=== PATIENT | female | born 1970 | race Caucasian/White ===

== ENCOUNTER 2025-01-03 21:32 | Observation (INO) ==
--- NOTE | 2025-01-03 22:12 | Emergency Department Note ---
History of Present Illness General Chief complaint: Cardiac Assessment Stated complaint: Chest Discomfort Time Seen by Provider: 01/03/25 21:59 History of Present Illness Maximum Pain Intensity: 5 This is a 54-year-old female presenting to the emergency department via EMS for evaluation of central chest pain. Patient's symptoms began around 6:30 PM, and she describes it as a squeezing sensation. Patient did receive aspirin and nitroglycerin for EMS, and nitroglycerin seem to help her pain. On arrival to the ER the discomfort is a 5/10. Patient does have a history of breast cancer in remission. No known history of diabetes. Patient does not have any recent travel history. Home Medications Medication Instructions Recorded Confirmed Type cholecalciferol (vitamin D3) 50 50 mcg PO DAILY 01/12/22 01/04/25 History mcg (2,000 unit) capsule rosuvastatin 10 mg tablet (Crestor) 10 mg PO .3 times/week 12/23/23 01/04/25 History tamoxifen 20 mg tablet 20 mg PO .3 times/week 12/23/23 01/04/25 History turmeric 400 mg capsule 400 mg PO DAILY 12/23/23 01/04/25 History mecobalamin (vitamin B12) 5,000 5,000 mcg PO DAILY 12/21/24 01/04/25 History mcg disintegrating tablet gabapentin 300 mg capsule 300 mg PO [id number] 01/04/25 01/04/25 History vitamin E 100 unit capsule 100 mg PO DAILY 01/04/25 01/04/25 History Allergies Allergy/AdvReac Type Severity Reaction Status Date / Time No Known Allergies Allergy Verified 01/04/25 02:34 Past Med/Surg History Problem List (Updated 01/04/25 @ 05:58 by Alfredo Rg PA-C) Pulmonary embolism (Acute) Malignant neoplasm of upper-inner quadrant of left breast in female, estrogen receptor positive (Chronic 07/31/21) Endometriosis (Chronic) Abdominal pain (Acute) Medical History Abnormal vaginal Pap smear Surgical History History of colonoscopy (03/24/20) History of colonoscopy (03/21/15) History of ultrasound guided needle biopsy (07/31/21) Left Breast History of partial mastectomy of left breast (08/25/21) Left Breast [employer] Localized Partial Masectomy with SNL Biopsy Dr. Johny Ríos at OR [facility] Family History Father No problems noted. Mother No problems noted. Brother No problems noted. Sister No problems noted. Daughter No problems noted. Social History Smoking Status: Current every day smoker Tobacco Type: Cigarettes packs per day: 1; Second Hand Exposure: No; Do You Dip or Chew Tobacco: No; Hx Alcohol Use: No Hx Substance Use: No Preferred Language: Palestinian Communication Ability: Effective Visual Impairment: Limited Hearing Ability: Normal Brushing Operator Required: No Beliefs That Will Affect Care: None marital status: Current Living Situation: Family current occupational status: unemployed How many Children do You have: 1 Feels Safe at Home: Yes Childhood Exposure to Second-Hand Smoke: No Diet Comment: low potassium during the past year weight has: remained stable Dental Care, Regularly: No Assistive Devices: Glasses Review of Systems A total of 10 systems reviewed and were otherwise negative Physical Exam Vital Signs Vital Signs - 24 hr 01/03/25 21:40 01/03/25 21:47 01/03/25 21:50 Temperature 36.8 C Temperature Source Oral Pulse Rate 102 H 109 H Pulse Rate [Apical] Pulse Rhythm [Apical] Pulse Strength [Apical] Respiratory Rate 18 Respiratory Effort / Characteristics Respiratory Depth Respiratory Pattern Blood Pressure 117/76 Blood Pressure [Right Arm] Blood Pressure Mean 89 Blood Pressure Mean [Right Arm] Blood Pressure Position [Right Arm] Pulse Oximetry 94 Oxygen Delivery Method Room Air Sepsis Recent Fever Within 48 Hours No Sepsis New/Unexplained Change in Mental Status N/A Sepsis Action Taken by Nursing No Action Required 01/04/25 00:00 01/04/25 01:05 01/04/25 01:49 Temperature Temperature Source Pulse Rate 86 Pulse Rate [Apical] 96 H 80 Pulse Rhythm [Apical] Regular Regular Pulse Strength [Apical] Normal Normal Respiratory Rate 17 17 Respiratory Effort / Characteristics Non-Labored Spontaneous Non-Labored Spontaneous Respiratory Depth Normal Normal Respiratory Pattern Regular Regular Blood Pressure Blood Pressure [Right Arm] 106/85 109/77 Blood Pressure Mean Blood Pressure Mean [Right Arm] 92 87 Blood Pressure Position [Right Arm] Lying Lying Pulse Oximetry 96 98 Oxygen Delivery Method Room Air Room Air Sepsis Recent Fever Within 48 Hours Sepsis New/Unexplained Change in Mental Status Sepsis Action Taken by Nursing 01/04/25 02:30 01/04/25 05:01 01/04/25 05:45 Temperature Temperature Source Pulse Rate 76 Pulse Rate [Apical] 87 79 Pulse Rhythm [Apical] Regular Regular Pulse Strength [Apical] Normal Normal Respiratory Rate 18 17 Respiratory Effort / Characteristics Non-Labored Spontaneous Non-Labored Spontaneous Respiratory Depth Normal Normal Respiratory Pattern Regular Regular Blood Pressure Blood Pressure [Right Arm] 105/75 107/70 Blood Pressure Mean Blood Pressure Mean [Right Arm] 85 82 Blood Pressure Position [Right Arm] Sitting Lying Pulse Oximetry 97 97 Oxygen Delivery Method Room Air Room Air Sepsis Recent Fever Within 48 Hours Sepsis New/Unexplained Change in Mental Status Sepsis Action Taken by Nursing VITALS: Vitals are noted on the nurse's note and reviewed by myself. Vital signs stable. GENERAL: Well-developed, well-nourished, white female, who is in no acute distress and resting comfortably. Patient is cooperative with the examination. HEAD: Normocephalic atraumatic. MOUTH: Mucous membranes moist. Tonsils are not enlarged. Pharynx without erythema, blood, or exudate. Uvula midline. Airway patent. NECK: Supple without nuchal rigidity. No lymphadenopathy. No thyromegaly. Cervical spine is nontender. HEART: Regular rate and rhythm without murmurs gallops or rubs. LUNGS: Clear to auscultation bilaterally without wheezes, rales or rhonchi. No retractions or accessory muscle use. ABDOMEN: Positive normal bowel sounds x 4. Soft, nontender, without masses or organomegaly. No guarding or rebound tenderness. MUSCULOSKELETAL: No muscle atrophy, erythema, or edema noted. Full range of motion in all extremities. Course Administered Medications Potassium Chloride/Sodium Chloride (Normal Saline W/20 Meq Kcl) 20 meq in 1,000 mls @ 75 mls/hr IV .[id number] STA Stop: 01/04/25 16:39 Last Admin: 01/04/25 04:52 Dose: 75 mls/hr Documented By: KAF Discontinued Medications Enoxaparin Sodium (Enoxaparin 80 Mg/0.8 Ml Syr) 70 mg 1 mg/kg (75 mg) SQ ONE STA Stop: 01/04/25 03:42 Last Admin: 01/04/25 04:11 Dose: 70 mg Documented By: ANA MARIA Sodium Chloride (Nss) 1,000 mls @ 999 mls/hr IV .[id number] ONE Stop: 01/03/25 23:08 Last Infusion: 01/04/25 01:15 Dose: Infused Documented By: Admin: 01/04/25 00:13 Dose: 999 mls/hr Documented By: AMADEO Calcium Gluconate () 1,000 mg in 60 mls @ 240 mls/hr IV NOW STA Stop: 01/04/25 03:11 Last Infusion: 01/04/25 04:16 Dose: Infused Documented By: ANA MARIA Admin: 01/04/25 03:53 Dose: 240 mls/hr Documented By: ANA MARIA Ioversol (Optiray 320 125ml) 115 ml IV ONCE ONE Stop: 01/03/25 23:20 Last Admin: 01/03/25 23:19 Dose: 115 ml Documented By: HUY Ketorolac Tromethamine (Ketorolac Tromethamine 15 Mg/Ml Vial) 10 mg IV NOW STA Stop: 01/04/25 03:42 Last Admin: 01/04/25 04:10 Dose: 10 mg Documented By: ANA MARIA Nitroglycerin (Nitroglycerin 2% Ointment 30gm Tube) 1 inch EXT NOW ONE Stop: 01/03/25 22:09 Last Admin: 01/03/25 22:47 Dose: Not Given Documented By: RAMIRO Medical Decision Making Differential Diagnosis Differential diagnosis includes, but is not limited to: Myocardial infarction, dysrhythmia, pericarditis, pneumothorax, aortic aneurysm/dissection, DVT/PE, anxiety, GERD, PUD, electrolyte imbalance, thyroid disorder, pneumonia, bronchitis, pancreatitis, and others Laboratory Data 01/04/25 04:45 01/04/25 04:45 Lab Results 01/03/25 01/04/25 Range/Units 21:58 04:45 WBC 17.72 H 10.52 (4.8-10.8) K/ul RBC 4.41 4.48 (4.20-5.40) M/uL Hgb 13.2 13.3 (12.0-16.0) g/dl Hct 38.3 39.3 (37.0-47.0) % MCV 86.8 87.7 (80.0-100.0) fL MCH 29.9 29.7 (25.0-34.0) pg MCHC 34.5 33.8 (32.0-36.0) g/dL RDW Std Deviation 40.1 40.2 (36.4-46.3) fL RDW Coeff of Dorita 12.5 12.5 (11.5-14.5) % Plt Count 277 247 (130-400) K/uL MPV 10.5 10.3 (9.4-12.4) fL Immature Gran % (Auto) 0.5 0.3 % Neut % (Auto) 77.3 66.8 % Lymph % (Auto) 15.1 23.5 % [place] % (Auto) 6.3 7.7 % Eos % (Auto) 0.5 1.2 % Baso % (Auto) 0.3 0.5 % Neut # (Auto) 13.71 H 7.03 H (1.40-6.50) K/uL Lymph # (Auto) 2.67 2.47 (1.20-3.40) K/uL [place] # (Auto) 1.12 H 0.81 H (0.11-0.59) K/uL Eos # (Auto) 0.09 0.13 (0.00-0.50) K/uL Baso # (Auto) 0.05 0.05 (0.00-0.20) K/uL Immature Gran # (Auto) 0.08 0.03 (0.01-0.20) K/uL PT 10.0 (9.0-12.0) Seconds INR 0.9 (0.9-1.1) APTT 27 (21-31) Seconds PTT Ratio 1.0 Sodium 137 139 (136-145) mmol/L Potassium 3.6 4.4 D (3.5-5.1) mmol/L Chloride 107 110 H (98-107) mmol/L Carbon Dioxide 21 24 (21-32) mmol/L Anion Gap 9 5 (3-11) BUN 9 8 (6-23) mg/dl Creatinine 0.65 0.61 (0.6-1.2) mg/dl Est Cr Clr Drug Dosing 97.1 103.5 ml/min eGFR 103.27 104.86 BUN/Creatinine Ratio 13.8 13.1 (10-20) Glucose 147 H 102 H (70-99(Fasting)) mg/dl Calcium 8.2 L 8.6 (8.6-10.3) mg/dl Magnesium 1.8 (1.7-2.4) mg/dl Total Bilirubin 0.2 (0.2-1.0) mg/dl AST 12 L (13-39) U/L ALT 10 (7-52) U/L Alkaline Phosphatase 58 (34-104) U/L Troponin I High Sens 6.0 (0-14) pg/ml Total Protein 6.1 (6.0-8.3) gm/dl Albumin 3.6 (3.4-5.0) gm/dl Globulin 2.5 (2.5-4.0) gm/dl Albumin/Globulin Ratio 1.4 (0.9-2) Ethyl Alcohol mg/dL < 10.0 (<10.0) mg/dl Imaging Data Radiologist's Impression: Chest X-Ray 01/03/25 21:46 Exam(s): XR CXR 1 VIEW EXAM: XR Chest, 1 View CLINICAL HISTORY: Reason for exam: Chest pain, nonspecific. TECHNIQUE: Frontal view of the chest. COMPARISON: No relevant prior studies available. FINDINGS: Lungs: Mild to moderate peribronchial thickening of the central lower lobe bronchi with increased interstitial opacities in the lower lobes. No consolidation. Pleural space: Unremarkable. No pneumothorax. Heart: Unremarkable. No cardiomegaly. Mediastinum: Unremarkable. Normal mediastinal contour. Bones/joints: Unremarkable. No acute fracture. IMPRESSION: Bronchitis, which may be of infectious or inflammatory etiologies. No consolidation or pleural effusion. Electronically signed by: Tatianna Sin MD 01/04/25 01:59 AM Chest CTA 01/03/25 22:37 CR Exam(s): CTA CHEST IV Amt: 115 ml optiray 320 EXAM: CT Angiography Chest With Intravenous Contrast CLINICAL HISTORY: Reason for exam: CP, Hx breast ca, 17k wbc. TECHNIQUE: Axial computed tomographic angiography images of the chest with intravenous contrast. CTDI is 14.25 mGy and DLP is 7.12 mGy-cm. Automated exposure control was utilized for the study. A dose lowering technique was utilized adhering to the principles of ALARA. MIP reconstructed images were created and reviewed. COMPARISON: None FINDINGS: Pulmonary arteries: Small pulmonary emboli in the subsegmental pulmonary arteries to the right lower lobe. Aorta: No acute findings. No aortic aneurysm or dissection. Lungs: Emphysematous changes. Mild dependent atelectasis bilaterally. No other focal consolidation. Pleural space: Unremarkable. No significant effusion. No pneumothorax. Heart: Unremarkable. No cardiomegaly. No significant pericardial effusion. No evidence of RV dysfunction. Mediastinum: Small hiatal hernia. Thyroid: Small hypodense nodules in the right thyroid lobe could be further evaluated with ultrasound if clinically indicated. Bones/joints: Mild degenerative changes of the spine. Old right-sided rib fracture deformity. No dislocation. Soft tissues: Small calcifications of the breasts. Lymph nodes: Unremarkable. No enlarged lymph nodes. IMPRESSION: 1. Small pulmonary emboli in the subsegmental pulmonary arteries to the right lower lobe. 2. No aortic aneurysm or dissection. 3. Emphysematous changes. Communications: Call Doctor Pulmonary Embolism Electronically signed by: Jovanny Brandt M.D. 01/04/25 02:25 AM MDM Narrative Physical exam and history were performed. Nursing notes, EMR, and Medication List were personally reviewed. No social concerns were identified as barriers to patients care. History was provided by the Patient and family at bedside. Patient appears to have chest pain symptoms bring her to the ER. These seem to have begun acutely a few hours ago. Discomfort may have been improved with nitroglycerin prehospital, however her blood pressure is now around 100/60. IV access was established and labs were obtained. She was hydrated with normal saline and sent to CT scan for imaging of her chest. Patient's blood work is as above and was reviewed. She does not have a significant elevated white blood cell count, gross anemia, bandemia, or significant electrolyte imbalance. Transaminases not diagnostic. Troponin x [address] is negative[address] negative[address] CT scan and chest x-ray were performed and reviewed by myself and radiology. Patient appears to have small pulmonary emboli on CT scan, and this would correlate with her symptoms. Escalation of care was considered, and felt to be necessary. Patient continues to have increasing discomfort here in the ER. Case was discussed with the on- call hospitalist who will start Lovenox. Please see the hospitalist dictation for further patient course, plan, and disposition. The chart was completed utilizing Dragon Speech Voice Recognition Software. Grammatical errors, random word insertions, pronoun errors, and incomplete sentences are an occasional consequence of this system due to software limitations, ambient noise, and hardware issues. Any formal questions or concerns about the content, text, or information contained within the body of this dictation should be directly addressed to the provider for clarification. Impression & Plan Pulmonary embolism Discharge Plan Visit Data Chief Complaint: Cardiac Assessment Stated Complaint: Chest Discomfort ED Provider: Carley Lebron ED Midlevel Provider: Alfredo Rg Discharge Problem: Pulmonary embolism Patient Disposition: Admitted As Inpatient Condition: Good Forms Stand Alone Forms: My [facility] Prescriptions Prescriptions: No Action cholecalciferol (vitamin D3) 50 mcg (2,000 unit) capsule 50 mcg PO DAILY tamoxifen 20 mg tablet 20 mg PO .3 times/week Rx Instructions: takes opposite days as Crestor turmeric 400 mg capsule 400 mg PO DAILY rosuvastatin [Crestor] 10 mg tablet 10 mg PO .3 times/week Rx Instructions: takes opposite days as Tamoxifen mecobalamin (vitamin B12) 5,000 mcg tablet,disintegrating 5,000 mcg PO DAILY gabapentin 300 mg capsule 300 mg PO [id number] Rx Instructions: Pt takes every other day vitamin E 100 unit Capsule 100 mg PO DAILY Referrals Referrals: PCP,NO [Physician] -
[2025-01-03 22:18] LABS: Basophils # (auto) 0.05 K/uL (0.00-0.20); Basophils % (auto) 0.3 %; Eosinophils # (auto) 0.09 K/uL (0.00-0.50); Eosinophils % (auto) 0.5 %; Hematocrit (blood only) 38.3 % (37.0-47.0); Hemoglobin 13.2 g/dl (12.0-16.0); Immature Granulocytes # (auto) 0.08 K/uL (0.01-0.20); Immature Granulocytes % (auto) 0.5 %; Lymphocytes # (auto) 2.67 K/uL (1.20-3.40); Lymphocytes % (auto) 15.1 %; Mean Corpuscular Hemoglobin 29.9 pg (25.0-34.0); Mean Corpuscular Hgb Conc 34.5 g/dL (32.0-36.0); Mean Corpuscular Volume 86.8 fL (80.0-100.0); Mean Platelet Volume 10.5 fL (9.4-12.4); Monocytes # (auto) 1.12 K/uL (0.11-0.59); Monocytes % (auto) 6.3 %; Neutrophils # (auto) 13.71 K/uL (1.40-6.50); Neutrophils % (auto) 77.3 %; Platelet Count 277 K/uL (130-400); RDW Coefficient of Variation 12.5 % (11.5-14.5); RDW Standard Deviation 40.1 fL (36.4-46.3); Red Blood Count 4.41 M/uL (4.20-5.40); White Blood Count 17.72 K/ul (4.8-10.8)
[2025-01-03 22:31] LABS: Albumin Level 3.6 gm/dl (3.4-5.0); Bilirubin,Total 0.2 mg/dl (0.2-1.0); Calcium 8.2 mg/dl (8.6-10.3); Potassium 3.6 mmol/L (3.5-5.1)
[2025-01-03 22:37] LABS: Albumin Globulin Ratio 1.4 (0.9-2); BUN Creatinine Ratio 13.8 (10-20); Creatinine Clr Calc Pharmacy 97.1 ml/min; Globulin 2.5 gm/dl (2.5-4.0); Total Protein 6.1 gm/dl (6.0-8.3)
[2025-01-03] MEDS: NITROGLYCERIN 2% OINTMENT 30GM TUBE EXT ONE (22:47)
[2025-01-03] MEDS: OPTIRAY 320 125ml IV ONE (23:19)
[2025-01-03 23:44] LABS: INR 0.9 (0.9-1.1); Partial Thromboplastin Time 27 Seconds (21-31)
[2025-01-04] MEDS: SODIUM CHLORIDE 0.9% 1,000 ML IV ONE (00:13)
--- OUTSIDE RECORDS SUMMARY | 2025-01-04 00:15 | External Medical Summary ---
Author Name Unknown Address Unknown Organization [id number][place] [place] [facility] [address] [facility] [address] Laboratory Report Ordering Provider Test Date Status PRATIBHA FLORES 12/12/2024 13:19:43 Lilia l Observation Date Value Abnormality Reference (Units ) Status BUN 12/12/2024 13:19:43 14 6-20 (mg/dL) Final Creatinine 12/12/2024 13:19:43 0.8 0.5-1.0 (mg/dL) Final Glomerular filtration rate/1.73 sq M.predicted [Volume Rate/Area] in Serum, Plasma or Blood by Creatinine-based formula (CKD-EPI) 12/12/2024 13:19:43 >90 >=60 (mL/min) Final eGFR is calculated based on the CKD-EPI 2020 equation. Sodium 12/12/2024 13:19:43 141 135-146 (m mol/L) Final Potassium 12/12/2024 13:19:43 4.7 3.5-5.1 (m mol/L) Final Cl 12/12/2024 13:19:43 107 98-107 (mm ol/L) Final CO2 12/12/2024 13:19:43 23 22-32 (mmo l/L) Final Anion gap 12/12/2024 13:19:43 11 7-15 (mmol /L) Final Glucose 12/12/2024 13:19:43 92 70-120 (mg /dL) Final Calcium 12/12/2024 13:19:43 9.5 8.4-10.2 ( mg/dL) Final [place]forming Location [facility] [place] [address] [place] [address]
--- OUTSIDE RECORDS SUMMARY | 2025-01-04 00:15 | External Medical Summary ---
Author Name Unknown Address Unknown Organization [id number]:[facility] [place] - [address] [place] [address] Laboratory Report Ordering Provider Test Date Status PRATIBHA FLORES 11/27/2024 11:00:37 Lilia l Observation Date Value Abnormality Reference (Units ) Status BUN 11/27/2024 11:00:37 13 6-20 (mg/dL) Final Creatinine 11/27/2024 11:00:37 0.7 0.5-1.0 (mg/dL) Final Glomerular filtration rate/1.73 sq M.predicted [Volume Rate/Area] in Serum, Plasma or Blood by Creatinine-based formula (CKD-EPI) 11/27/2024 11:00:37 >90 >=60 (mL/min) Final eGFR is calculated based on the CKD-EPI 2020 equation. Sodium 11/27/2024 11:00:37 143 135-146 (m mol/L) Final Potassium 11/27/2024 11:00:37 5.3 Above high normal 3. 5-5.1 (mmol/L) Final Cl 11/27/2024 11:00:37 109 Above high normal 98 -107 (mmol/L) Final CO2 11/27/2024 11:00:37 24 22-32 (mmo l/L) Final Anion gap 11/27/2024 11:00:37 10 7-15 (mmol /L) Final Glucose 11/27/2024 11:00:37 104 70-120 (mg /dL) Final Calcium 11/27/2024 11:00:37 9.5 8.4-10.2 ( mg/dL) Final Performing Location [facility] [place] - [address] [place] [address]
--- OUTSIDE RECORDS SUMMARY | 2025-01-04 00:15 | External Medical Summary | Summary of Care ---
Author Name Unknown Organization [facility] Address [address] [address] Phone [phone] Care Team Providers Care Leadership Development Consultant Name Role Phone Connie Lebron MD Primary Care Provide r Reason for Referral * Precert (Within 24 hrs (call dept; emergent)) - Pending Review Specialty Diagnoses / Procedures Referred By Ninoska bai Referred To Contact Radiology Diagnoses History of breast cancer Procedures MRI BREAST BILATERAL W WO CONTRAST Janelle Roche CRNP [address] [address] Phone: tel: fax: Referral ID Status Reason Start Date Expiration Date V isits Requested Visits Authorized [id number] Pending Review 11/21/2024 [id number] Reason for Visit * Reason Comments Follow Up 6 month follow up Encounter Details Date Type Department Care Team (Late st Contact Info) Description 11/21/2024 2:00 PM EDT Office Visit Hematology/Oncology [facility] [place] [address] [facility] [address] Janelle Roche CRNP [address] [place] [address] History of breast cancer*; 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 Active Cholecalcifero l (VITAMIN D3) 2000 units CapsuleIndicat ions:Vitamin D deficiency Take 1 Capsule by mouth in the morning. 30 Cap 5 9 Active Vitamin E 100 UNIT Oral Capsule Take 1 Capsule by mouth in the morning. Active Metamucil Fiber Oral Tablet Chewable Take by mouth. Activ e Rosuvastatin Calcium 5 MG Oral Tablet (Crestor) Take 1 tablet by mouth every 3 days. 36 Tablet 3 3 Active Additional Information Patient taking differently: 5 mg Oral Daily(AM), Take 1 tablet by mouth every 3-4 days, Reported on 11/13/2024 Gabapentin 300 MG Oral Capsule (Neurontin)Ind ications:Infil trating duct and lobular carcinoma of left breast (HCC) Take 1 capsule 3 days per week 45 Capsule 3 4 Active Turmeric 500 MG Oral Capsule Take 1 Capsule by mouth in the morning. Active Vitamin B 12 250 MCG Oral Lozenge Take by mouth. Activ e Tamoxifen Citrate 20 MG Oral TabletIndicati ons:Infiltrati ng duct and lobular carcinoma of left breast (HCC) Take 1 Tablet by mouth in the morning. In the morning.. 90 Tablet 3 5 Active Tamoxifen Citrate 20 MG Oral TabletIndicati ons:Infiltrati ng duct and lobular carcinoma of left breast (HCC) TAKE 1 TABLET BY MOUTH EVERY MORNING 90 Tablet 3 4 11/22/19 25 Discontin ued(Refil l) documented as of this encounter (statuses as of 11/24/2024) Active Problems Problem Noted Date Diagnosed Date S/P radiation therapy 11/13/2024 History of chemotherapy 11/13/2024 Prediabetes 11/13/2024 Mixed hyperlipidemia 11/13/2024 History of breast cancer 10/26/2022 Encounter for adjustment and management of vascular access device 06/23/2022 Tobacco use disorder 10/04/2007 Ovarian cyst documented as of this encounter (statuses as of 11/24/2024) Resolved Problems Problem Noted Date Diagnosed Date Resolved Date 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 08/25/2021 11/13/2024 Adjustment disorder with depressed mood 04/28/2016 01/26/2019 Abnormal Papanicolaou smear of vagina and vaginal HPV 01/26/2019 Overview (09/25/2007): had laser documented as of this encounter (statuses as of 11/24/2024) Immunizations Name Administration Dates Next Due Pneumococcal Polysaccharide PPV23 (Pneumovax) TDAP, Age 7 and older, IM (Adacel) 10/04/2007 documented as of this encounter Social History Tobacco Use Types Packs/Day Years Used Date Smoking Tobacco: Every Day Cigarettes 0.5 30 Started: 1994 Smokeless Tobacco: Never Alcohol Use Standard Drinks/Week Comments Yes 0 (1 standard drink = 0.6 oz pur e alcohol) On occasion PHQ-2 Answer Date Recorded PHQ-2 Score 0 01/26/2019 Comments No Sex and Gender Information Value Date Recorded Sex Assigned at Not on file Legal Sex Female 5:27 AM EST Gender Identity Not on file Sexual Orientation Not on file documented as of this encounter Last Filed Vital Signs Vital Sign Reading Time Taken Comments Blood Pressure 122/70 11/21/2024 2:01 PM EDT Pulse 86 11/21/2024 2:01 PM EDT Temperature 37.3 °C (99.1 °F) 11/21/2024 2:01 PM ED T Respiratory Rate - - Oxygen Saturation 97% 11/21/2024 2:01 PM EDT Inhaled Oxygen Concentration - - Weight 68.5 kg (151 lb 1.6 oz) 11/21/2024 2:01 P M EDT Height - - Body Mass Index 24.39 11/13/2024 11:23 AM EDT documented in this encounter Progress Notes * Janelle Roche CRNP - 11/21/2024 2:00 PM EDT Hematology/Oncology Outpatient Clinic note [facility] [address] [place] [address] Name: Sherry Barahona Date: 11/21/2024 CHIEF COMPLAINT: Sherry Barahona is a 54 year old female patient of Dr. Rock Linda here today for f/u visit From Patient chart confirmed with patient. From Dr. Rock Linda note 11/13/2023 Cancer Diagnosis: Left breast cancer pT1pN0, ER/MS/HER2 Jennifer positive Current Treatment: Tamoxifen 20 mg. She is taking 3 times a week only. She had poor tolerance and toxicity from aromatase inhibitor. Gabapentin for neuropathy. Again she is taking 1 tablet every other day Previous Treatment: - Status post weekly 12 cycles of Taxol concurrent with Herceptin. Completed total of 1 year of adjuvant Herceptin. Received last dose 10/25/2022 - letrozole, she stopped taking after 5 days because of the side effects and toxicity. Status post partial mastectomy lymph node biopsy. Oncologic History : 53-year-old female otherwise healthy recently diagnosed of left breast cancer which was initially found on the screening mammogram. Mammogram and ultrasound were done on 07/08/2021 which shows 6 x 5 x 6 mm poorly defined hypoechoic mass at 11 o'clock 1 cm from nipple . She had a core biopsy of this lesion done on 07/31/2021 and histopathology was consistent with invasive carcinoma ductal and lobular features, grade 2. ER/MS and HER2/jennifer all positive. A. Left breast, core needle biopsy: Invasive carcinoma with ductal and lobular features, grade 2. Estrogen Receptor (ER) protein expression is STRONGLY POSITIVE Progesterone Receptor (MS) protein expression is WEAKLY POSITIVE HER2 oncoprotein expression is POSITIVE ( 3+ average membranous intensity). On 08/25/2021 she underwent partial mastectomy and sentinel lymph node biopsy and again histopathology was consistent with invasive carcinoma with ductal and lobular features grade 2. The size of thetumor was 7 mm and 2 lymph nodes were negative for metastatic disease. A. Left axillary sentinel lymph node #1, excision: One lymph node, no carcinoma seen (0/1). B. Left axillary sentinel lymph node #2, excision: One lymph node, no carcinoma seen (0/1). C. Left breast, partial mastectomy: Invasive carcinoma with ductal and lobular features, grade 2, 7 mm (microscopic measurement). Ductal carcinoma in situ, intermediate nuclear grade, cribriform pattern. Biopsy site changes. See synoptic data and microscopic findings. D. Left breast, additional superior margin, excision: Breast parenchyma. E. Left breast, additional medial margin, excision: Breast parenchyma. Primary Tumor(pT): pT1b: Tumor >5 mm but <=10 mm in greatest dimension Regional Lymph Nodes Modifier: (sn): Only sentinel node(s) evaluated. Regional Lymph Nodes (pN): pN0: No regional lymph node metastasis. She smoke half or more than half pack per day for last 26 years. Denies drinking. Family history is negative for any hematologic/oncologic problem Interval History: Overall clinically she is stable without any new symptoms of complain. She continued taking tamoxifen 3 times a week without any new symptoms complain. Denies swelling in arms/ legs. No vaginal pain or d/c. Denies chest pain or shortness of breath. Denies any headache, dizziness, blurred vision, chest pain palpitation, change in the bowel habits, nausea, abdominal pain, change in the bowel habits. Neuropathy is stable and continue taking gabapentin 3 times a day. HISTORY OF PRESENT ILLNESS: Sherry Barahona is a 54 year old female with a history as outlined above. Currently here for f/u visit today. Feeling well. Tolerating Tamoxifen three times a week. She does have hot flashes at times. She also has issues sleeping--"brain won't stop"See full ros below. Past Medical History: Diagnosis Date Abnormal Papanicolaou smear of vagina and vaginal HPV had laser years ago Abnormal Papanicolaou smear of vagina and vaginal HPV had laser Adjustment disorder with depressed mood 04/28/16 Breast cancer (HCC) 07/31/2021 Left breast Invasive carcinoma with ductal & lobular features Ovarian cyst Tobacco use disorder Tubular adenoma 03/21/15 5 mm tubular adenoma ascending colon, 5 mm tubular adenoma sigmoid Uterine fibroid 2007 Past Surgical History: Procedure Laterality Date CHEMOTHERAPY 09/28/2021 Taxol/ Herceptin X 13 cycles (completed 01/04/2022) COLONOSCOPY, DIAGNOSTIC (RECTUM) 03/21/2015 5 mm tubular adenoma ascending colon, 5 mm tubular adenoma sigmoid, repeat 5 yrs COLONOSCOPY, DIAGNOSTIC (RECTUM) 03/24/2020 2 5 mm sigmoid hyperplastic polyps repeat 5 years, performed by Brittny García DO at ENDOSCOPY [facility] CT ABDOMEN/PELVIS 03/11/2015 unremarkable EXC BREAST LESION RADMARK Left 08/25/2021 EXCISION OF BREAST LESION RADIOLOGICAL MARKER performed by Johny Ríos MD at OR [facility] FRAGMENT KIDNEY STONE BY SHOCK WAVE Left 09/12/2023 LEFT LITHOTRIPSY EXTRACORPOREAL SHOCK WAVE performed by Jace Ríos MD at OR [facility] HC BREAST BRYAN SCREEN BILATERAL Bilateral 06/13/2023 heterogeneously dense, postsurgical changes on left, stable ,2, repeat 1 year HC DIGITAL BREAST TOMOSYNTHESIS; UNILATERAL Right 07/21/2020 heterogeneously dense category 2 IDENTIFY SENTINEL NODE, RADIOACTIVE TRACER Left 08/25/2021 INJECTION PROCEDURE FOR IDENTIFICATION SENTINEL NODE performed by Johny Ríos MD at OR [facility] INFORMATION age 22(?) laser surgery of cervix INFORMATION age 22 or 23 (?) laparoscopy for ovarian cyst INSER TUNN ACC DEV;5 YRS/OLDER Right 09/24/2021 INSERT TUNNELED CENTRAL VENOUS ACCESS WITH SUBQ PORT performed by Johny Ríos MD at OR [facility] MAMMOGRAM SCREENING BILATERAL 01/13/2010 fibroglandular changes, category 1 normal MAMMOGRAM SCREENING BILATERAL Bilateral 06/01/2016 heterogeneously dense, category 2, scattered calcifications. repeat 1 year MAMMOGRAM SCREENING BILATERAL Bilateral 06/02/2017 heterogeneously dense, category 2 MAMMOGRAM SCREENING-BILATERAL 01/24/2009 Left 0 further study needed, right 1 normal MASTECTOMY, PARTIAL Left 08/25/2021 MASTECTOMY PARTIAL performed by Johny Ríos MD at OR [facility] RADIATION THERAPY Left 02/23/2022 5130 cGy utilizing hypofractionation SURGICAL PROCEDURE ONLY Right 12/21/2023 Right port remove by Dr. Johny Ríos. US GUIDED BREAST BIOPSY LEFT Left 07/31/2021 Invasive carcinoma with lobular & ductal features US PELVIS TRANS-ABDOMINAL AND TRANS-VAGINAL 06/04/2015 2 uterine fibroids Social History Socioeconomic History Marital status: Spouse name: Not on file Number of children: 1 Years of education: Not on file Highest education level: Not on file Occupational History Not on file Tobacco Use Smoking status: Every Day Current packs/day: 0.50 Average packs/day: 0.5 packs/day for 30.0 years (15.0 ttl pk-yrs) Types: Cigarettes Start date: 1994 Smokeless tobacco: Never Vaping Use Vaping status: Never Used Substance and Sexual Activity Alcohol use: Yes Comment: On occasion Drug use: No Sexual activity: Yes Partners: Male Other Topics Concern Not on file Social History Narrative Not on file Social Needs Financial Resource Strain: Not on file Food Insecurity: Not on file Transportation Needs: Not on file Social Connections: Not on file Housing Stability: Not on file Review of patient's allergies indicates: Allergen Reactions Lipitor [Atorvastatin] Muscles aches Metoprolol palpitations Repatha [Evolocumab] Back pain Statins Palpitations, msk aches Zetia [Ezetimibe] Muscle and joint aches and shortness of breath Current Outpatient Medications Medication Sig Dispense Refill Ibuprofen 200 MG Oral Tablet Take 1 Tablet by mouth every 4 hours as needed for Pain. Cholecalciferol (VITAMIN D3) 2000 units Capsule Take 1 Capsule by mouth in the morning. 30 Cap 5 Vitamin E 100 UNIT Oral Capsule Take 1 Capsule by mouth in the morning. Metamucil Fiber Oral Tablet Chewable Take by mouth. Rosuvastatin Calcium 5 MG Oral Tablet (Crestor) Take 1 tablet by mouth every 3 days. (Patient taking differently: Take 1 Tablet by mouth in the morning. Take 1 tablet by mouth every 3-4 days .) 36 Tablet 3 Gabapentin 300 MG Oral Capsule (Neurontin) Take 1 capsule 3 days per week 45 Capsule 3 Turmeric 500 MG Oral Capsule Take 1 Capsule by mouth in the morning. Tamoxifen Citrate 20 MG Oral Tablet TAKE 1 TABLET BY MOUTH EVERY MORNING 90 Tablet 3 Vitamin B 12 250 MCG Oral Lozenge Take by mouth. No current facility-administered medications for this visit. REVIEW OF SYSTEMS: Review of Systems Constitutional: Negative for appetite change, chills, diaphoresis, fatigue and fever. HENT: Negative for mouth sores, sore throat and trouble swallowing. Respiratory: Negative for chest tightness, cough, hemoptysis and shortness of breath. Cardiovascular: Negative for chest pain, leg swelling and palpitations. Gastrointestinal: Negative for abdominal pain, constipation, diarrhea, nausea and vomiting. Endocrine: Positive for hot flashes. Musculoskeletal: Negative for back pain, gait problem and neck pain. Skin: Negative. Neurological: Positive for numbness. Negative for dizziness, gait problem and headaches. Hematological: Does not bruise/bleed easily. Psychiatric/Behavioral: Positive for sleep disturbance. Negative for confusion. Insomnia at HS- "brain won't stop" OBJECTIVE: Filed Vitals: 11/21/24 1401 BP: 122/70 Pulse: 86 Temp: 37.3 °C (99.1 °F) TempSrc: Tympanic SpO2: 97% Weight: 68.5 kg (151 lb 1.6 oz) Wt Readings from Last 5 Encounters: 11/21/24 68.5 kg (151 lb 1.6 oz) 11/13/24 68.9 kg (152 lb) 07/18/24 69.9 kg (154 lb) 05/15/24 69.9 kg (154 lb) 11/08/23 71.2 kg (157 lb) PHYSICAL EXAM: ECOG: Performance Status 0 = 100% Normal Activity General Appearance: Normal - Healthy appearing patient in no acute distress HEENT: Normal - No oral or pharyngeal masses, ulceration or thrush noted, no sinus tenderness Lymph Nodes: Normal - No palpable lymph nodes in the neck or supraclavicular areas Lungs/Thorax: Normal - Clear to auscultation Heart: Normal - Regular rate and rhythm, normal S1, S2, no appreciable murmurs, rubs, gallops Pulses/Extremities: Normal - 2+ throughout and symmetrical, no edema Abdomen: Normal - Soft, nontender, bowel sounds present, no appreciable hepatosplenomegaly, no palpable masses Musculoskeletal: Normal - No pain on palpation over bony prominence, no joint or bony deformity Neurologic: Normal - Grossly intact Skin: no rash, chest wall lesions, paleness or jaundice LABS: Results for orders placed or performed in visit on 11/13/24 HEMOGLOBIN A1C Result Value Ref Range Hemoglobin A1C 5.8 (H) 4.0 - 5.6 % Estimated Average Glucose 120 <126 mg/dL 25-HYDROXY VITAMIN D Result Value Ref Range 25-Hydroxy Vitamin D 23 >19 ng/mL COMPREHENSIVE METABOLIC PANEL Result Value Ref Range BUN 11 6 - 20 mg/dL CREATININE 0.8 0.5 - 1.0 mg/dL EGFR >90 >=60 mL/min SODIUM 139 135 - 146 mmol/L POTASSIUM 5.2 (H) 3.5 - 5.1 mmol/L CHLORIDE 105 98 - 107 mmol/L CO2 24 22 - 32 mmol/L ANION GAP 10 7 - 15 mmol/L GLUCOSE 100 70 - 120 mg/dL Albumin 4.2 3.8 - 5.0 g/dL AST 12 10 - 35 U/L Alkaline Phosphatase 78 35 - 130 U/L Bilirubin, Total 0.3 <=1.2 mg/dL CALCIUM 9.5 8.4 - 10.2 mg/dL Protein 6.5 6.0 - 8.3 g/dL ALT 10 10 - 35 U/L CBC Result Value Ref Range WBC 8.76 4.00 - 10.80 K/uL RBC 5.09 3.85 - 5.15 M/uL HGB 14.8 12.0 - 15.3 g/dL HCT 46.5 (H) 36.0 - 45.2 % MCV 91.4 81.5 - 97.5 fL MCH 29.1 27.0 - 34.0 pg MCHC 31.8 32.0 - 36.0 g/dL RDW 13.0 11.5 - 15.5 % PLT 332 140 - 400 K/uL MPV 11.2 6.6 - 11.1 fL nRBCs 0 <=0 /100 WBCs DIFFERENTIAL, AUTOMATED Result Value Ref Range WBC 8.76 4.00 - 10.80 K/uL Neutrophils % 64.6 40.0 - 75.0 % Lymphocytes % 26.8 18.0 - 42.0 % Monocytes % 6.3 1.0 - 11.0 % Eosinophils % 1.5 0.0 - 6.0 % Basophils % 0.5 0.0 - 2.0 % Immature Granulocytes % 0.3 0.0 - 2.0 % Absolute Neutrophils 5.66 1.80 - 7.70 K/uL Absolute Lymphocytes 2.35 1.00 - 4.80 K/ul Absolute Monocytes 0.55 0.00 - 1.10 K/uL Absolute Eosinophils 0.13 0.00 - 0.70 K/uL Absolute Basophils 0.04 0.00 - 0.20 K/uL Absolute Immature Granulocytes 0.03 0.00 - 0.20 K/uL Reviewed lab results with [facility] IMAGING: MAMMOGRAM 06/14/24 Impression Bilateral No mammographic evidence of malignancy. BI-RADS® Category: 2 - Benign. Recommendation Diagnostic mammogram in 1 year is recommended for both breasts. ASSESSMENT: Left breast cancer: stage pT1pN0 stage I disease. Doing extremely well with JUAN A - received 12 weekly courses of Taxol and Herceptin and then continued Herceptin on every 3 weeks basis complete total of 1 year.. Received last dose of Herceptin on 10/25/2022. -Currently she is taking tamoxifen 20 mg 3 times a week. She had poor tolerance and toxicity from aromatase inhibitor. PLAN: Continue Tamoxifen RTC [address] Mckeon Mammogram due in 06/29 MRI due 12/31/24 Bone density considered-continue calcium with vitamin d FABIAN Interiano documented in this encounter Nursing Notes * Alexandra Lopez CMA - 11/21/2024 2:04 PM EDT Patient identifed by name and birthdate Do you have any concerns about pain management for today's visit? No Living Will or Advance Directive for Health Care as noted on the problem list. [employer] is a way you can talk to your provider on line through e-mail. Would you like to sign up? I can activate it for you? ALREADY ACTIVE Filed Vitals: 11/21/24 1401 BP: 122/70 Pulse: 86 Temp: 37.3 °C (99.1 °F) TempSrc: Tympanic SpO2: 97% Weight: 68.5 kg (151 lb 1.6 oz) Patient was instructed to not get up on the exam table/exam chair until directed and assisted by their provider; patient is to remain seated in the chair/ wheelchair/ exam table/ exam chair for fall prevention and safety reasons. Patient is aware to have assistance to step down off exam table/exam chair with personnel. Patient voiced full comprehension of instructions. documented in this encounter Plan of Treatment Upcoming Encounters Date Type Department Care Team (Late st Contact Info) Description 12/05/2024 10:00 AM EDT Cardiac Studies Cardiac Studies, [facility] [address] [place] [address] 12/31/2024 10:15 AM EDT Imaging Radiology [address] [place] [address] 05/17/2025 11:00 AM EDT Office Visit [address] [place] [phone] Ladi Hunter MD [address] [place] [address] [place] [phone] 05/21/2025 8:30 AM EDT Office Visit Cardiology, [facility] [address] [place] [address] Dena Rodriguez CRNP [address] [place] [address] 06/03/2025 2:00 PM EDT Office Visit Hematology/Oncology [facility] [address] [place] [id number] Pranav Mckeon MD [address] [place] [address] 06/17/2025 10:45 AM EDT Imaging Radiology [address] [place] [address] 07/03/2025 10:45 AM EDT Office Visit General Surgery, [facility] [address] [place] [address] Johny Ríos MD [address] [place] [address] Scheduled Orders Name Type Priority Associated Diagnoses Orde r Schedule MRI BREAST BILATERAL W WO CONTRAST Medical Imaging STAT History of breast cancer Ordered: 11/21/2024 Scheduled Procedures Name Priority Associated Diagnoses Date/Ti me COLONOSCOPY FLEXIBLE PROXIMA L DIAGNOSTIC Recall History of colonic polyps Health Maintenance Due Date Last Done Comments HIV Screening 11/16/1983 Hepatitis C Screening 1986 Hepatitis B Vaccine (1 of 3 - 19+ 3-dose series) 11/16/1987 Pneumococcal Vaccine: 50+ Years (2 of 2 - PCV) 01/08/2010 01/08/2009 Cologuard 2013 Fecal Occult Blood Test 2013 Sigmoidoscopy 2013 DTap/Tdap Vaccines (2 - Td or Tdap) 10/04/2017 10/04/2007 Zoster Vaccines (1 of 2) 2018 Depression Screening 01/27/2020 01/26/2019 COVID-19 Vaccine ( - 2023- season) 2024 Influenza Vaccine (FLU shot) (#1) 2024 Colonoscopy 03/24/2025 03/24/2020, 03/06, 03/21/2015, Additional history exists Colorectal Cancer Screening 03/24/2025 Mammogram 06/14/2025 06/14/2024, 100 05/2023, 06/22/2022, Additional history exists HbA1c 11/14/2025 11/14/2024, 0 11/2022, 12/21/2021 Pap Smear 07/14/2026 07/14/2023, 080 04/2018, 04/12/2018, Additional history exists Cervical Cancer Screening 07/14/2028 HPV/Co-Test 07/14/2028 07/14/2023 Lipid Panel 05/02/2029 05/02/2024, 050 04/2024, 10/27/2023, Additional history exists RETIRED - COLONOSCOPY-EVERY 5 YRS AGES 18-100 Discontinued 03/24/2020, 03/24/2020, 03/21/2015, Additional history exists HPV (Gardasil) Vaccine Aged Out No lo nger eligible based on patient's age to complete this topic MENINGOCOCCAL (MENACTRA/MENVEO) Aged Out No longer eligible based on patient's age to complete this topic Meningitis B Vaccine (Bexsero/Trumemba) Aged Out No longer eligible based on patient's age to complete this topic documented as of this encounter Medical Devices Implanted Type Area Crematorium Operator Device Identifier Shelf Expiration Date Model / Serial / Lot Port Power Mri W/8fr Cath - [id number] Implanted:Qty : 1 on 09/24/2021 by Johny Ríos MD at OR [facility] Right: Subclavian CR BARD : PERIPHERAL VASCULAR 11/02/2022 [id number] / / [id number] documented as of this encounter Visit Diagnoses Diagnosis History of breast cancer- Primary Personal history of malignant neoplasm of breast 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 Question Answer Comments Discussion of Advance Directives occurred with: Patient * Full Code Date Activated Date Inactivated Comments 09/12/2023 8:29 AM 09/12/2023 10:23 AM This order re flects the patients wishes and were consensually agreed upon. Question Answer Comments Discussion of Advance Directives occurred with: Patient * Full Code Date Activated Date Inactivated Comments 09/24/2021 11:10 AM 09/24/2021 6:18 PM This order reflects the patients wishes and were consensually agreed upon. Care Teams Leadership Development Consultant Relationship Specialty Start Date End Date Connie Lebron MD [address] [place] [address] [place] [address] PCP - General Family Medicine 09/24/24 documented as of this encounter
--- OUTSIDE RECORDS SUMMARY | 2025-01-04 00:15 | External Medical Summary | Summary of Care ---
Author Name Unknown Organization [facility] Address [address] [facility] [place] [address] Phone [phone] Care Team Providers Care Taxation Inspector Name Role Phone Connie Lebron MD Primary Care Provide r Reason for Visit * Reason Onset Date Comments Test Results 12/17/2024 Encounter Details Date Type Department Care Team (Late st Contact Info) Description 12/17/2024 Telephone Cardiology, [facility] [address] [place] [phone] Alfredo Stubbs, [address] [place] [address] Test Results Allergies Active Allergy Reactions Criticality Noted Date Comments Atorvastatin 07/19/2022 Muscles aches Metoprolol 03/05/2022 palpitations Evolocumab 10/13/2023 Back pain Statins 04/05/2023 Palpitations, msk aches Ezetimibe 10/13/2023 Muscle and joint aches and shortness of breath documented as of this encounter (statuses as of 12/18/2024) Medications Ibuprofen 200 MG Oral Tablet Take 1 Tablet by mouth every 4 hours as needed for Pain. Active Cholecalciferol (VITAMIN D3) 2000 units CapsuleIndicati ons:Vitamin D deficiency Take 1 Capsule by mouth in the morning. 30 Cap 5 05/28/201 9 Active Vitamin E 100 UNIT Oral [...] on 11/13/2024 Gabapentin 300 MG Oral Capsule (Neurontin)Caridad cations:Infiltr ating duct and lobular carcinoma of left breast (HCC) Take 1 capsule 3 days per week 45 Capsule 3 4 Active Turmeric 500 MG Oral Capsule Take 1 Capsule by mouth in the morning. Active Vitamin B 12 250 MCG Oral Lozenge Take by mouth. 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 In the morning.. 90 Tablet 3 5 Active documented as of this encounter (statuses as of 12/18/2024) Active Problems Problem Noted Date Diagnosed Date S/P radiation therapy 11/13/2024 History of chemotherapy 11/13/2024 Prediabetes 11/13/2024 Mixed hyperlipidemia 11/13/2024 History of breast cancer 10/26/2022 Encounter for adjustment and management of vascular access device 06/23/2022 Tobacco use disorder 10/04/2007 Ovarian cyst documented as of this encounter (statuses as of 12/18/2024) Resolved Problems Problem Noted Date Diagnosed Date Resolved Date 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 08/25/2021 11/13/2024 Adjustment disorder with depressed mood 04/28/2016 01/26/2019 Abnormal Papanicolaou smear of vagina and vaginal HPV 01/26/2019 Overview (09/25/2007): had laser documented as of this encounter (statuses as of 12/18/2024) Immunizations Name Administration Dates Next Due Pneumococcal Polysaccharide PPV23 (Pneumovax) TDAP, Age 7 and older, IM (Adacel) 10/04/2007 documented as of this encounter Social History Tobacco Use Types Packs/Day Years Used Date Smoking Tobacco: Every Day Cigarettes 0.5 30.1 Started: 1994 Smokeless Tobacco: Never Alcohol Use [...] on file documented as of this encounter Miscellaneous Notes * Telephone Encounter - Alfredo Stubbs DO - 12/17/2024 6:53 PM EDT I called the patient reviewed the results of her echocardiogram performed earlier this month in follow-up of her history of Herceptin therapy. Her last dose of Herceptin had taken place in October, so she is now 2 years removed. Her echocardiogram reveals normal LVEF, normal global longitudinal strain. Which are stable compared to the previous study. Mild mitral regurgitation mild tricuspid regurgitation noted which are new findings. Patient denies any change in her activity tolerance. Denies shortness of breath. As of now, she has completed the necessary 2-year surveillance after completing Herceptin therapy. She should keep her cardiology follow-up visit as scheduled in May,. Questions answered to her satisfaction. Alfredo Stubbs DO documented in this encounter Plan of Treatment Upcoming Encounters Date Type Department Care Team (Late st Contact Info) Description 12/31/2024 10:15 AM EDT Imaging Radiology [facility] 1st [facility] [address] [place] [phone] 05/17/2025 11:00 AM EDT Office Visit Family Medicine [address] [place] [phone] Ladi Hunter MD [address] [place] [address] [place] [phone] 05/21/2025 8:30 AM EDT Office Visit Cardiology, [facility] [address] [place] [phone] Dena Rodriguez CRNP [address] [place] [address] 06/03/2025 2:00 PM EDT Office Visit Hematology/Oncology [facility] [address] [place] [phone] Pranav Mckeon MD [address] [place] [address] 06/17/2025 10:45 AM EDT Imaging Radiology [facility] [address] [place] [phone] 07/03/2025 10:45 AM EDT Office Visit General Surgery, [facility] [address] [place] [phone] Johny Ríos MD [address] [place] [address] Scheduled Procedures Name Priority Associated Diagnoses Date/Ti me COLONOSCOPY FLEXIBLE PROXIMA L DIAGNOSTIC Recall History of colonic polyps Health Maintenance Due Date Last Done Comments Depression Screening 1980 HIV Screening 11/16/1983 Hepatitis C Screening 1986 Hepatitis B Vaccine (1 of 3 - 19+ 3-dose series) 11/16/1987 Pneumococcal Vaccine: 50+ Years (2 of 2 - PCV) 01/08/2010 01/08/2009 Cologuard 2013 Fecal Occult Blood Test 2013 Sigmoidoscopy 2013 DTap/Tdap Vaccines (2 - Td or Tdap) 10/04/2017 10/04/2007 Zoster Vaccines (1 of 2) 2018 COVID-19 Vaccine (1 - season) 2024 Colonoscopy 03/24/2025 03/24/2020, 07/, 03/21/2015, Additional history exists Colorectal Cancer Screening 03/24/2025 Influenza Vaccine (FLU shot) (Season Ended) 2025 Mammogram 06/14/2025 06/14/2024, 05/2023, 06/22/2022, Additional history exists HbA1c 11/14/2025 11/14/2024, 11/2022, 12/21/2021 Pap Smear 07/14/2026 07/14/2023, 0 04/2018, 04/12/2018, Additional history exists Cervical Cancer Screening 07/14/2028 HPV/Co-Test 07/14/2028 07/14/2023 Lipid Panel 05/02/2029 05/02/2024, 0 04/2024, 10/27/2023, Additional history exists RETIRED - [...] this encounter Medical Devices Implanted Type Area Online Media Buyer Device Identifier Shelf Expiration Date Model / Serial / Lot Port Power Mri W/8fr Cath - [id number] Implanted:Qty : 1 on 09/24/2021 by Johny Ríos MD at OR [facility] Right: Subclavian CR BARD : PERIPHERAL VASCULAR 11/02/2022 [id number] / / [id number] documented as of this encounter Advance Directives * Full Code [...] and were consensually agreed upon. Care Teams Taxation Inspector Relationship Specialty Start Date End Date Connie Lebron MD [address] [place] [address] [place] [address] PCP - General Family Medicine 09/24/24 documented as of this encounter
--- OUTSIDE RECORDS SUMMARY | 2025-01-04 00:15 | External Medical Summary ---
Author Name Unknown Address Unknown Organization [id number]:[facility] - [address] [facility] [place] [address] Laboratory Report Ordering Provider Test Date Status PRATIBHA FLORES 11/14/2024 12:13:52 Lilia l Observation Date Value Abnormality Reference (Units ) Status WBC, Total 11/14/2024 12:13:52 8.76 4.00-10.80 (K/uL) Final RBC 11/14/2024 12:13:52 5.09 3.85-5.15 (M/uL) Final Hemoglobin 11/14/2024 12:13:52 14.8 12.0-15.3 (g/dL) Final HCT 11/14/2024 12:13:52 46.5 Above high normal 36.0-45.2 (%) Final MCV 11/14/2024 12:13:52 91.4 81.5-97.5 (fL) Final MCH 11/14/2024 12:13:52 29.1 27.0-34.0 (pg) Final MCHC 11/14/2024 12:13:52 31.8 32.0-36.0 (g/dL) Final RDW 11/14/2024 12:13:52 13.0 11.5-15.5 (%) Final Platelets 11/14/2024 12:13:52 332 140-400 (K/uL) Final MPV 11/14/2024 12:13:52 11.2 6.6-11.1 (fL) Final Nucleated erythrocytes/100 leukocytes [Ratio] in Blood by Automated count 11/14/2024 12:13:52 0 <=0 (/100 WBCs) Final Performing Location [facility] - [address] [place] [address]
--- OUTSIDE RECORDS SUMMARY | 2025-01-04 00:15 | External Medical Summary ---
Author Name Unknown Address Unknown Organization [id number]:[facility] - [address] [facility] [address] Laboratory Report Ordering Provider Test Date Status PRATIBHA FLORES 11/14/2024 12:13:52 Lilia l Observation Date Value Abnormality Reference (Units ) Status BUN 11/14/2024 12:13:52 11 6-20 (mg/dL) Final Creatinine 11/14/2024 12:13:52 0.8 0.5-1.0 (mg/dL) Final Glomerular filtration rate/1.73 sq M.predicted [Volume Rate/Area] in Serum, Plasma or Blood by Creatinine-based formula (CKD-EPI) 11/14/2024 12:13:52 >90 >=60 (mL/min) Final eGFR is calculated based on the CKD-EPI 2020 equation. Sodium 11/14/2024 12:13:52 139 135-146 (m mol/L) Final Potassium 11/14/2024 12:13:52 5.2 Above high normal 3. 5-5.1 (mmol/L) Final Cl 11/14/2024 12:13:52 105 98-107 (mm ol/L) Final CO2 11/14/2024 12:13:52 24 22-32 (mmo l/L) Final Anion gap 11/14/2024 12:13:52 10 7-15 (mmol /L) Final Glucose 11/14/2024 12:13:52 100 70-120 (mg /dL) Final Albumin 11/14/2024 12:13:52 4.2 3.8-5.0 (g /dL) Final AST (Aspartate aminotransferase) 11/14/2024 12:13:52 12 10-35 (U/L) Fin al Alk Phos 11/14/2024 12:13:52 78 35-130 (U/ L) Final Bilirubin, Total 11/14/2024 12:13:52 0.3 <=1 .2 (mg/dL) Final Calcium 11/14/2024 12:13:52 9.5 8.4-10.2 ( mg/dL) Final Protein 11/14/2024 12:13:52 6.5 6.0-8.3 (g /dL) Final ALT (Alanine aminotransferase) 11/14/2024 12:13:52 10 10-35 (U/L) Ander rao Performing Location [facility] - [address] [facility] [address]
--- OUTSIDE RECORDS SUMMARY | 2025-01-04 00:15 | External Medical Summary | Summary of Care ---
Author Name Unknown Organization [facility] Address [address] [address] Phone [phone] Care Team Providers Care Sports Cartoonist Name Role Phone Connie Lebron MD Primary Care Provide r Reason for Visit * Reason Comments Outpatient Testing Encounter Details Date Type Department Care Team (Late st Contact Info) Description 12/12/2024 1:20 PM EDT Laboratory Laboratory [address] [place] [phone] [place] [address] Serum potassium elevated Allergies Active Allergy Reactions Criticality Noted Date Comments Atorvastatin 07/19/2022 Muscles aches Metoprolol 03/05/2022 palpitations Evolocumab 10/13/2023 Back pain Statins 04/05/2023 Palpitations, msk aches Ezetimibe 10/13/2023 Muscle and joint aches and shortness of breath documented as of this encounter (statuses as of 12/12/2024) Medications Ibuprofen 200 MG Oral Tablet Take 1 Tablet by mouth every 4 hours as needed for Pain. Active Cholecalciferol (VITAMIN D3) 2000 units CapsuleIndicati ons:Vitamin D deficiency Take 1 Capsule by mouth in the morning. 30 Cap 5 201 9 Active Vitamin E 100 UNIT Oral [...] as of this encounter (statuses as of 12/12/2024) Active Problems Problem Noted Date Diagnosed Date S/P radiation therapy 11/13/2024 History of chemotherapy 11/13/2024 Prediabetes 11/13/2024 Mixed hyperlipidemia 11/13/2024 History of breast cancer 10/26/2022 Encounter for adjustment and management of vascular access device 06/23/2022 Tobacco use disorder 10/04/2007 Ovarian cyst documented as of this encounter (statuses as of 12/12/2024) Resolved Problems Problem Noted Date Diagnosed Date Resolved Date 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 08/25/2021 11/13/2024 Adjustment disorder with depressed mood 04/28/2016 01/26/2019 Abnormal Papanicolaou smear of vagina and vaginal HPV 01/26/2019 Overview (09/25/2007): had laser documented as of this encounter (statuses as of 12/12/2024) Immunizations Name Administration Dates Next Due Pneumococcal [...] on file documented as of this encounter Plan of Treatment Upcoming Encounters Date Type Department Care Team (Late st Contact Info) Description 12/31/2024 10:15 AM EDT Imaging Radiology [address] [place] [phone] 05/17/2025 11:00 AM EDT Office Visit Family Medicine [address] [place] [phone] Ladi Hunter MD [address] [place] [address] [place] [address] 05/21/2025 8:30 AM EDT Office Visit Cardiology, [facility] [address] [place] [phone] Dena Rodriguez CRNP [address] [place] [address] 06/03/2025 2:00 PM EDT Office [facility] [address] [place] [phone] Pranav Mckeon MD [address] [place] [address] 06/17/2025 10:45 AM EDT Imaging Radiology [address] [place] [address] 07/03/2025 10:45 AM EDT Office Visit General Surgery, [facility] [address] [place] [phone] Johny Ríos MD [address] [place] [address] Pending Results Name Type Priority Associated Diagnoses Date /Time BASIC METABOLIC PANEL Lab Routine Serum potassium elevated 12/12/2024 1:19 PM EDT Scheduled Procedures Name Priority Associated Diagnoses Date/Ti [...] Vaccines (1 of 2) 2018 COVID-19 Vaccine ( - season) 2024 Colonoscopy 03/24/2025 03/24/2020, 03/06, 03/21/2015, Additional history exists Colorectal Cancer Screening 03/24/2025 Influenza Vaccine (FLU shot) (Season Ended) 2025 Mammogram 06/14/2025 06/14/2024, 05/2023, 06/22/2022, Additional history exists HbA1c 11/14/2025 11/14/2024, 11/2022, 12/21/2021 Pap Smear 07/14/2026 07/14/2023, 04/2018, 04/12/2018, Additional history exists Cervical Cancer [...] this encounter Medical Devices Implanted Type Area Business Computers Teacher Device Identifier Shelf Expiration Date Model / Serial / Lot Port Power Mri W/8fr Cath - [id number] Implanted:Qty : 1 on 09/24/2021 by Johny Ríos MD at [facility] Right: Subclavian CR BARD : PERIPHERAL VASCULAR 11/02/2022 [id number] / / [id number] documented as of this encounter Visit Diagnoses Diagnosis Serum potassium elevated Hyperpotassemia Screening mammogram for breast cancer documented in [...] and were consensually agreed upon. Care Teams Sports Cartoonist Relationship Specialty Start Date End Date Connie Lebron MD [address] [place] [address] [place] [address] PCP - General Family Medicine 09/24/24 documented as of this encounter
--- OUTSIDE RECORDS SUMMARY | 2025-01-04 00:15 | External Medical Summary ---
Author Name Unknown Address Unknown Organization K01:[facility] - [address] [facility] [address] Laboratory Report Ordering Provider Test Date Status PRATIBHA FLORES 11/14/2024 12:13:52 Lilia l Observation Date Value Abnormality Reference (Units ) Status HbA1C 11/14/2024 12:13:52 5.8 Above high normal 4. 0-5.6 (%) Final The use of HbA1c to monitor glycemic status is based on normal hemoglobin and HbA composition. This test should not be used in patients with abnormal hemoglobin that affects the half life of the red blood cell or the in vivo glycation rates. Glucose, estimated average 11/14/2024 12:13:52 120 <126 (mg/dL) Final Performing Location [facility] - [address] [facility] [address]
--- OUTSIDE RECORDS SUMMARY | 2025-01-04 00:15 | External Medical Summary | Summary of Care ---
Author Name Unknown Organization [facility] Address [address] [facility] [place] [address] Phone [phone] Care Team Providers Care Cell Technician Name Role Phone Connie Lebron MD Primary Care Provide r Reason for Visit * Reason Onset Date Comments Appointment 12/28/2024 Encounter Details Date Type Department Care Team (Late st Contact Info) Description 12/28/2024 [address]phone [address] [place] [address] Rosalie Hernandez, RT (R) Appointment Allergies Active Allergy Reactions Criticality Noted Date Comments Atorvastatin 07/19/2022 Muscles aches Metoprolol 03/05/2022 palpitations Evolocumab 10/13/2023 Back pain Statins 04/05/2023 Palpitations, msk aches Ezetimibe 10/13/2023 Muscle and joint aches and shortness of breath documented as of this encounter (statuses as of 12/28/2024) Medications Ibuprofen 200 MG Oral Tablet Take [...] as of this encounter (statuses as of 12/28/2024) Active Problems Problem Noted Date Diagnosed Date S/P radiation therapy 11/13/2024 History of chemotherapy 11/13/2024 Prediabetes 11/13/2024 Mixed hyperlipidemia 11/13/2024 History of breast cancer 10/26/2022 Encounter for adjustment and management of vascular access device 06/23/2022 Tobacco use disorder 10/04/2007 Ovarian cyst documented as of this encounter (statuses as of 12/28/2024) Resolved Problems Problem Noted Date Diagnosed Date Resolved Date 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 08/25/2021 11/13/2024 Adjustment disorder with depressed mood 04/28/2016 01/26/2019 Abnormal Papanicolaou smear of vagina and vaginal HPV 01/26/2019 Overview (09/25/2007): had laser documented as of this encounter (statuses as of 12/28/2024) Immunizations Name Administration Dates Next Due Pneumococcal [...] encounter Miscellaneous Notes * Telephone Encounter - Rosalie Hernandez RT (R) - 12/28/2024 4:17 PM EDT Left message for patient to arrive at 9:45am for check in and to call back with any yes answers to screening questions If you answer "yes" to any of the following, please give us a call at before coming to your MRI appointment: Do you have a pacemaker/defibrillator? Do you have any electronic or mechanical implants? Have you had a recent colonoscopy in the last 30 days? Are you or ? Do you work around metal or ever gotten metal in your eyes? Any dermals or body piercing you cannot remove? Do you wear an insulin pump or diabetic monitor? Have you had any tattoos or permanent makeup in the last 4 weeks? documented in this encounter Plan of Treatment Upcoming Encounters Date Type Department Care Team (Late st Contact Info) Description 12/31/2024 10:15 AM EDT Imaging Radiology [address] [place] [phone] 05/17/2025 11:00 AM EDT Office Visit Family Medicine [address] [place] [phone] Ladi Hunter MD [address] [place] [address] [place] [phone] 05/21/2025 8:30 AM EDT Office Visit Cardiology, [facility] [address] [place] [phone] Dena Rodriguez CRNP [address] [place] [address] 06/03/2025 2:00 PM EDT Office Visit Hematology/Oncology [facility] [address] [place] [phone] Pranav Mckeon MD [address] [place] [address] 06/17/2025 10:45 AM EDT Imaging [facility] [address] [place] [phone] 07/03/2025 10:45 AM EDT Office Visit General Surgery, [facility] [address] [place] [phone] Johny Ríos MD [address] [place] [address] Scheduled Procedures Name Priority Associated Diagnoses Date/Ti [...] this encounter Medical Devices Implanted Type Area Senior Applications Engineer Device Identifier Shelf Expiration Date Model / Serial / Lot Port Power Mri W/8fr Cath - [id number] Implanted:Qty : 1 on 09/24/2021 by Johny Ríos MD at OR [facility] Right: Subclavian CR BARD : PERIPHERAL VASCULAR 11/02/2022 [id number] / / [id number] documented as of this encounter Advance Directives [...] and were consensually agreed upon. Care Teams Cell Technician Relationship Specialty Start Date End Date Connie Lebron MD [address] [place] [address] [place] [phone] PCP - General Family Medicine 09/24/24 documented as of this encounter
--- OUTSIDE RECORDS SUMMARY | 2025-01-04 00:15 | External Medical Summary | Summary of Care ---
Author Name Unknown Organization [facility] Address [address] [facility] [address] Phone [phone] Care Team Providers Care Relationship Advisor Name Role Phone Connie Lebron MD Primary Care Provide r Reason for Visit * Reason Comments Outpatient Testing Encounter Details Date Type Department Care Team (Late st Contact Info) Description 11/27/2024 11:10 AM EDT Laboratory Laboratory [address] [place] [phone] [place] [address] Serum potassium elevated Allergies Active Allergy Reactions Criticality Noted Date Comments Atorvastatin 07/19/2022 Muscles aches Metoprolol 03/05/2022 palpitations Evolocumab 10/13/2023 Back pain Statins 04/05/2023 Palpitations, msk aches Ezetimibe 10/13/2023 Muscle and joint aches and shortness of breath documented as of this encounter (statuses as of 11/27/2024) Medications Ibuprofen 200 MG Oral Tablet Take [...] as of this encounter (statuses as of 11/27/2024) Active Problems Problem Noted Date Diagnosed Date S/P radiation therapy 11/13/2024 History of chemotherapy 11/13/2024 Prediabetes 11/13/2024 Mixed hyperlipidemia 11/13/2024 History of breast cancer 10/26/2022 Encounter for adjustment and management of vascular access device 06/23/2022 Tobacco use disorder 10/04/2007 Ovarian cyst documented as of this encounter (statuses as of 11/27/2024) Resolved Problems Problem Noted Date Diagnosed Date Resolved Date 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 08/25/2021 11/13/2024 Adjustment disorder with depressed mood 04/28/2016 01/26/2019 Abnormal Papanicolaou smear of vagina and vaginal HPV 01/26/2019 Overview (09/25/2007): had laser documented as of this encounter (statuses as of 11/27/2024) Immunizations Name Administration Dates Next Due Pneumococcal [...] 10:00 AM EDT Cardiac Studies Cardiac Studies, [facility] [address] [place] [phone] 12/31/2024 10:15 AM EDT Imaging Radiology [address] [place] [address] 05/17/2025 11:00 AM EDT Office Visit Family Medicine [address] [phone] Ladi Hunter MD [address] [place] [address] [place] [phone] 05/21/2025 8:30 AM EDT Office Visit Cardiology, [facility] [address] [place] [phone] Dena Rodriguez CRNP [address] [place] [address] 06/03/2025 2:00 PM EDT [facility] [address] [place] [phone] Pranav Mckeon MD [address] [place] [address] 06/17/2025 10:45 AM EDT Imaging Radiology [address] [place] [phone] 07/03/2025 10:45 AM EDT Office Visit General Surgery, [facility] [address] [place] [phone] Johny Ríos MD [address] [place] [address] Pending Results Name Type Priority Associated Diagnoses Date /Time BASIC METABOLIC PANEL Lab Routine Serum potassium elevated 11/27/2024 11:00 AM EDT Scheduled Procedures Name Priority Associated Diagnoses [...] Screening 01/27/2020 01/26/2019 COVID-19 Vaccine ( - season) 2024 Influenza Vaccine (FLU shot) (#1) 2024 Colonoscopy 03/24/2025 03/24/2020, 07, 03/21/2015, Additional history exists Colorectal Cancer Screening 03/24/2025 Mammogram 06/14/2025 06/14/2024, 05/2023, 06/22/2022, Additional history [...] this encounter Medical Devices Implanted Type Area Application Penetration Tester Device Identifier Shelf Expiration Date Model / Serial / Lot Port Power Mri W/8fr Cath - [id number] Implanted:Qty : 1 on 09/24/2021 by Johny Ríos MD at [facility] Right: Subclavian CR BARD : PERIPHERAL VASCULAR 11/02/2022 [id number] / / [id number] documented as of this encounter Visit Diagnoses [...] and were consensually agreed upon. Care Teams Relationship Advisor Relationship Specialty Start Date End Date Connie Lebron MD [address] [place] [address] [place] [address] PCP - General Family Medicine 09/24/24 documented as of this encounter
--- OUTSIDE RECORDS SUMMARY | 2025-01-04 00:15 | External Medical Summary | Summary of Care ---
Author Name Unknown Organization [facility] Address [address] [facility] [place] [address] Phone [phone] Care Team Providers Care Steward/Stewardess Tourist Class Name Role Phone Connie Lebron MD Primary Care Provide r Encounter Details Date Type Department Care Team (Late st Contact Info) Description 11/23/2024 Orders Only PATIENT PORTAL DO NOT DELETE THIS DEPT USED BY [place] [id number] Allergies Active Allergy Reactions Criticality Noted Date Comments Atorvastatin 07/19/2022 Muscles aches Metoprolol 03/05/2022 palpitations Evolocumab 10/13/2023 Back pain Statins 04/05/2023 Palpitations, msk aches Ezetimibe 10/13/2023 Muscle and joint aches and shortness of breath documented as of this encounter (statuses as of 11/23/2024) Medications Ibuprofen 200 MG Oral Tablet Take [...] as of this encounter (statuses as of 11/23/2024) Active Problems Problem Noted Date Diagnosed Date S/P radiation therapy 11/13/2024 History of chemotherapy 11/13/2024 Prediabetes 11/13/2024 Mixed hyperlipidemia 11/13/2024 History of breast cancer 10/26/2022 Encounter for adjustment and management of vascular access device 06/23/2022 Tobacco use disorder 10/04/2007 Ovarian cyst documented as of this encounter (statuses as of 11/23/2024) Resolved Problems Problem Noted Date Diagnosed Date Resolved Date 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 08/25/2021 11/13/2024 Adjustment disorder with depressed mood 04/28/2016 01/26/2019 Abnormal Papanicolaou smear of vagina and vaginal HPV 01/26/2019 Overview (09/25/2007): had laser documented as of this encounter (statuses as of 11/23/2024) Immunizations Name Administration Dates Next Due Pneumococcal [...] 10:00 AM EDT Cardiac Studies Cardiac Studies, [facility] [address] [place] [address] 12/31/2024 10:15 AM EDT Imaging Radiology [address] [place] [address] 05/17/2025 11:00 AM EDT Office Visit Family Medicine [address] [place] [phone] Ladi Hunter MD [address] [place] [address] [place] [address] 05/21/2025 8:30 AM EDT Office Visit Cardiology, [facility] [address] [place] [address] Dena Rodriguez CRNP [address] [place] [address] 06/03/2025 2:00 PM EDT Office Visit Hematology/Oncology [facility] [address] [place] [phone] Pranav Mckeon MD [address] [place] [address] 06/17/2025 10:45 AM EDT Imaging Radiology [address] [place] [address] 07/03/2025 10:45 AM EDT Office Visit General Surgery, [facility] [address] [place] [phone] Johny Ríos MD [address] [place] [address] Scheduled Procedures Name Priority Associated Diagnoses Date/Ti [...] HPV/Co-Test 07/14/2028 07/14/2023 Lipid Panel 05/02/2029 05/02/2024, 04/2024, 10/27/2023, Additional history exists RETIRED - [...] this encounter Medical Devices Implanted Type Area Industrial Psychologist Device Identifier Shelf Expiration Date Model / Serial / Lot Port Power Mri W/8fr Cath - [id number] Implanted:Qty : 1 on 09/24/2021 by Johny Ríos MD at OR [facility] Right: Subclavian CR BARD : PERIPHERAL VASCULAR 11/02/2022 [id number] / / [id number] documented as of this encounter Advance Directives [...] and were consensually agreed upon. Care Teams Steward/Stewardess Tourist Class Relationship Specialty Start Date End Date Connie Lebron MD [address] [place] [address] [place] [address] PCP - General Family Medicine 09/24/24 documented as of this encounter
--- OUTSIDE RECORDS SUMMARY | 2025-01-04 00:15 | External Medical Summary | Summary of Care ---
Author Name Unknown Organization [facility] Address [address] [facility] [address] Phone [phone] Care Team Providers Care Nutritional Health Coach Name Role Phone Connie Lebron MD Primary Care Provide r Reason for Visit * Reason Comments Outpatient Testing Encounter Details Date Type Department Care Team (Late st Contact Info) Description 11/14/2024 12:20 PM EDT Laboratory Laboratory [address] [place] [phone] [place], [address] [place] [address] Arrived Allergies Active Allergy Reactions Criticality Noted Date Comments Atorvastatin 07/19/2022 Muscles aches Metoprolol 03/05/2022 palpitations Evolocumab 10/13/2023 Back pain Statins 04/05/2023 Palpitations, msk aches Ezetimibe 10/13/2023 Muscle and joint aches and shortness of breath documented as of this encounter (statuses as of 11/14/2024) Medications Ibuprofen 200 MG Oral Tablet Take [...] Capsule by mouth in the morning. Active Tamoxifen Citrate 20 MG Oral TabletIndicatio ns:Infiltrating duct and lobular carcinoma of left breast (HCC) TAKE 1 TABLET BY MOUTH EVERY MORNING 90 Tablet 3 4 Active Vitamin B 12 250 MCG Oral Lozenge Take by mouth. 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 08/25/2021 11/13/2024 Adjustment disorder with depressed mood 04/28/2016 01/26/2019 Abnormal Papanicolaou smear of vagina and vaginal HPV 01/26/2019 Overview (09/25/2007): had laser documented as of this encounter (statuses as of 11/14/2024) Immunizations Name Administration Dates Next Due Pneumococcal [...] 11/21/2024 2:00 PM EDT Office Visit Hematology/Oncology [facility] [address] [facility] [place] [phone] Janelle Roche CRNP [address] [place] [address] 12/05/2024 10:00 AM EDT Cardiac Studies Cardiac Studies, [facility] [address] [place] [address] 05/17/2025 11:00 AM EDT Office Visit Family Medicine [address] [phone] Ladi Hunter MD [address] [place], [place] [address] [phone] 05/21/2025 8:30 AM EDT Office Visit Cardiology, [facility] [address] [place] [address] Dena Rodriguez CRNP [address] [place] [address] 06/17/2025 10:45 AM EDT Imaging Radiology [facility] [address] [place] [phone] 07/03/2025 10:45 AM EDT Office Visit General Surgery, [facility] [address] [place] [phone] Johny Ríos MD [address] [place] [address] Scheduled Procedures Name Priority Associated Diagnoses Date/Ti [...] of 2) 2018 Depression Screening 01/27/2020 01/26/2019 HbA1c 09/07/2023 09/07/2022, 12/21/2021 COVID-19 Vaccine ( - season) 2024 Influenza Vaccine (FLU shot) (#1) 2024 Colonoscopy 03/24/2025 03/24/2020, 03/06, 03/21/2015, Additional history exists Colorectal Cancer Screening 03/24/2025 Mammogram 06/14/2025 06/14/2024, 05/2023, 06/22/2022, Additional history exists Pap Smear 07/14/2026 07/14/2023, 04/2018, 04/12/2018, Additional [...] this encounter Medical Devices Implanted Type Area Tenant Selector Device Identifier Shelf Expiration Date Model / Serial / Lot Port Power Mri W/8fr Cath - [id number] Implanted:Qty : 1 on 09/24/2021 by Johny Ríos MD at OR [facility] Right: Subclavian CR BARD : PERIPHERAL VASCULAR 11/02/2022 [id number] / / [id number] documented as of this encounter Advance Directives [...] and were consensually agreed upon. Care Teams Nutritional Health Coach Relationship Specialty Start Date End Date Connie Lebron MD [address] [place] [address] [place] [address] PCP - General Family Medicine 09/24/24 documented as of this encounter
--- OUTSIDE RECORDS SUMMARY | 2025-01-04 00:15 | External Medical Summary ---
Author Name Unknown Address Unknown Organization [id number]:[facility]ORY [facility] - [address] [place] [address] Laboratory Report Ordering Provider Test Date Status PRATIBHA FLORES 11/14/2024 12:13:52 Lilia l Deficient: <20 ng/mL
Ins ufficient: 20-29 ng/mL
Recommended/Optimum:30-50 ng/mL

Vitamin D intoxication is rare. If suspicious of Vitamin D toxicity, evaluation of serum Calcium and PTH is recommended. Observation Date Value Abnormality Reference (Units ) Status 25-OH Vitamin D total 11/14/2024 12:13:52 23 >19 (ng/mL) Final Performing Location [facility] [place] - [address] [place] [address]
--- OUTSIDE RECORDS SUMMARY | 2025-01-04 00:15 | External Medical Summary ---
Author Name Unknown Address Unknown Organization [id number]:[facility] [place] - [address] [facility] [address] Laboratory Report Ordering Provider Test Date Status PRATIBHA FLORES 11/14/2024 12:13:52 Lilia l Observation Date Value Abnormality Reference (Units ) Status SYNC LEUKOCYTES IN BLOOD BY AUTOMATED COUNT 11/14/2024 12:13:52 8.76 4.00-10.80 (K/uL) Final Segs 11/14/2024 12:13:52 64.6 40.0-75.0 (%) Final Lymphs % 11/14/2024 12:13:52 26.8 18.0-42.0 (%) Final Monos 11/14/2024 12:13:52 6.3 1.0-11.0 (%) Final Eosinophils 11/14/2024 12:13:52 1.5 0.0-6.0 (%) Final Basos 11/14/2024 12:13:52 0.5 0.0-2.0 (%) Final Immature Granulocyte, Percent 11/14/2024 12:13:52 0.3 0.0-2.0 (%) Final Absolute Segs 11/14/2024 12:13:52 5.66 1.80-7.70 (K/uL) Final Lymphs, absolute 11/14/2024 12:13:52 2.35 1.00-4.80 (K/ul) Final Monos, Abs 11/14/2024 12:13:52 0.55 0.00-1.10 (K/uL) Final Eos, Abs 11/14/2024 12:13:52 0.13 0.00-0.70 (K/uL) Final Basos, Abs 11/14/2024 12:13:52 0.04 0.00-0.20 (K/uL) Final Immature Granulocytes, Number 11/14/2024 12:13:52 0.03 0.00-0.20 (K/uL) Final Performing Location LAB[facility]ORY [facility] - [facility] [place] [address]
--- OUTSIDE RECORDS SUMMARY | 2025-01-04 00:16 | External Medical Summary | Summary of Care ---
Author Name Unknown Organization [facility] Address [address] [facility] [place] [address] Phone [phone] Care Team Providers Care Local Company Truck Driver Name Role Phone Aleida Raines PA-C Primary Care Provider [phone]- [phone] Reason for Visit * Reason Comments Follow Up Follow up checking. 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 Active Cholecalciferol (VITAMIN D3) 2000 units CapsuleIndications :Vitamin D deficiency Take 1 Capsule by mouth in the morning. 30 Cap 5 05/28/20 19 Active Ketoconazole 2 % External Cream Apply to feet twice daily x 4-6 weeks 60 g 5 09/28/19 23 Active Additional Information Patient not taking.Reported on 01/25/2024 Vitamin E 100 UNIT Oral Capsule Take 1 Capsule by mouth in the morning. Active Metamucil Fiber Oral Tablet Chewable Take by mouth. Activ e Rosuvastatin Calcium 5 MG Oral Tablet (Crestor) Take 1 tablet by mouth every 3 days. 36 Tablet 3 08/16/20 23 Active Additional Information Patient taking differently: 5 mg Oral Daily(AM), Take 1 tablet by mouth every 3-4 days, Reported on 09/02/2023 oxyCODONE-Acetamin ophen 5-325 MG Oral Tablet (Percocet) Take 1 Tablet by mouth every 6 hours as needed for Pain, Severe. 12 Tablet 09/12/19 24 Active Additional Information Patient not taking.Reported on 01/25/2024 Ondansetron 4 MG Oral Tablet Disintegrating (Zofran) Place 1 Tablet on tongue every 8 hours as needed for Nausea. dissolve on tongue. 20 Tablet 09/12/19 24 Active Additional Information Patient not taking.Reported on 09/26/2023 Tamsulosin HCl 0.4 MG Oral Capsule (Flomax) Take 1 Capsule by mouth in the morning. 30 Capsule 09/12/19 24 Active Additional Information Patient not taking.Reported on 10/13/2023 Gabapentin 300 MG Oral Capsule (Neurontin)Indicat ions:Infiltrating duct and lobular carcinoma of left breast (HCC) Take 1 capsule 3 days per week 45 Capsule 3 09/13/19 24 Active Turmeric 500 MG Oral Capsule Take 1 Capsule by mouth in the morning. Active Nicotine Polacrilex 4 MG Mouth/Throat Lozenge (Nicorette) Use 1 lozenge at onset of nicotine craving. Max 20 pieces/day. 400 Lozenge 5 11/01/19 24 Active Tamoxifen Citrate 20 MG Oral TabletIndications: Infiltrating duct and lobular carcinoma of left breast (HCC) TAKE 1 TABLET BY MOUTH EVERY MORNING 90 Tablet 3 11/28/19 24 Active Nicotine 14 MG/24HR Transdermal Patch 24 Hour (Nicoderm CQ) Place 1 Patch over 24 hours topically on the skin daily. 28 Patch 5 05/08/20 24 Active documented as of this encounter (statuses as of 07/18/2024) Active Problems Problem Noted Date Diagnosed Date History of breast cancer 10/26/2022 Encounter for adjustment and management of vascular access device 06/23/2022 Infiltrating duct and lobular carcinoma of left breast 08/25/2021 Tobacco use disorder 10/04/2007 Ovarian cyst documented as of this encounter (statuses as of 07/18/2024) Resolved Problems Problem Noted Date Diagnosed Date Resolved Date Adjustment disorder with depressed mood 04/28/2016 01/26/2019 Abnormal Papanicolaou smear of vagina and vaginal HPV 01/26/2019 Overview (09/25/2007): had laser documented as of this encounter (statuses as of 07/18/2024) Immunizations Name Administration Dates Next Due Pneumococcal Polysaccharide PPV23 (Pneumovax) TDAP, Age 7 and older, IM (Adacel) 10/04/2007 documented as of this encounter Social History Tobacco Use Types Packs/Day Years Used Date Smoking Tobacco: Every Day Cigarettes 0.5 29.7 Started: 1994 Smokeless Tobacco: Never Alcohol Use [...] Sign Reading Time Taken Comments Blood Pressure - - Pulse - - Temperature - - Respiratory Rate - - Oxygen Saturation - - Inhaled Oxygen Concentration - - Weight 69.9 kg (154 lb) 07/18/2024 9:37 AM EST Height - - Body Mass Index 24.86 09/12/2023 8:39 AM EST documented in this encounter Progress Notes * Johny Ríos MD - 07/18/2024 1:58 PM EST SUBJECTIVE: Sherry Barahona is a 53 year old female with a history of breast cancer. She is now 3 years following a left partial mastectomy and sentinel node biopsy for an intermediate grade invasive ductal carcinoma. [place] nodes were negative. Her primary tumor was estrogen receptor and progesterone receptor positive. HER- 2/tolu receptors positive. Margins were negative. She did receive left breast radiation. She did not receive left leticia radiation. She did receive adjuvant chemotherapy. She does perform self-breast examination. She has noticed no change in her self breast examination.She has noticed no discharge from either nipple. She has had no new bone or joint symptoms. She hashad no new respiratory symptoms. She denies any severe headaches, weight loss, or unusual fatigue. Patient complains of nothing. Past Medical History: Diagnosis Date Abnormal Papanicolaou [...] performed by Brittny García DO at ENDOSCOPY [facility] CT ABDOMEN/PELVIS 03/11/2015 unremarkable EXC BREAST LESION RADMARK Left 08/25/2021 EXCISION OF BREAST LESION RADIOLOGICAL MARKER performed by Johny Ríos MD at OR [facility] FRAGMENT KIDNEY STONE BY SHOCK WAVE Left 09/12/2023 LEFT LITHOTRIPSY EXTRACORPOREAL SHOCK WAVE performed by Jace Ríos MD at OR [facility] HC BREAST TUNDE SCREEN BILATERAL Bilateral 06/13/2023 heterogeneously dense, postsurgical changes on left, stable ,2, repeat 1 year HC DIGITAL BREAST TOMOSYNTHESIS; UNILATERAL Right 07/21/2020 heterogeneously dense category 2 IDENTIFY SENTINEL NODE, RADIOACTIVE TRACER Left 08/25/2021 INJECTION PROCEDURE FOR IDENTIFICATION SENTINEL NODE performed by Johny Ríos MD at OR [facility] INFORMATION age 22(?) laser surgery of cervix INFORMATION age 22 or 23 (?) laparoscopy for ovarian cyst INSER TUNN ACC DEV;5 YRS/OLDER Right 09/24/2021 INSERT TUNNELED CENTRAL VENOUS ACCESS WITH SUBQ PORT performed by Johny Ríos MD at OR [facility] MAMMOGRAM SCREENING BILATERAL 01/13/2010 fibroglandular changes, category 1 normal MAMMOGRAM SCREENING BILATERAL Bilateral 06/01/2016 heterogeneously dense, category 2, scattered calcifications. repeat 1 year MAMMOGRAM SCREENING BILATERAL Bilateral 06/02/2017 heterogeneously dense, category 2 MAMMOGRAM SCREENING-BILATERAL 01/24/2009 Left 0 further study needed, right 1 normal MASTECTOMY, PARTIAL Left 08/25/2021 MASTECTOMY PARTIAL performed by Johny Ríos MD at OR [facility] RADIATION THERAPY Left 02/23/2022 5130 cGy utilizing hypofractionation SURGICAL PROCEDURE ONLY Right 12/21/2023 Right port remove by Dr. Johny Ríos. US GUIDED BREAST BIOPSY LEFT Left 07/31/2021 Invasive carcinoma with lobular & ductal features US PELVIS TRANS-ABDOMINAL AND TRANS-VAGINAL 06/04/2015 2 uterine fibroids Current Outpatient Medications Medication Sig Dispense Refill Ibuprofen 200 MG Oral Tablet Take 1 Tablet by mouth every 4 hours as needed for Pain. Cholecalciferol (VITAMIN D3) 2000 units Capsule Take 1 Capsule by mouth in the morning. 30 Cap 5 Ketoconazole 2 % External Cream Apply to feet twice daily x 4-6 weeks (Patient not taking: Reportedon 01/25/2024) 60 g 5 Vitamin E 100 UNIT Oral Capsule Take 1 Capsule by mouth in the morning. Metamucil Fiber Oral Tablet Chewable Take by mouth. Rosuvastatin Calcium 5 MG Oral Tablet (Crestor) Take 1 tablet by mouth every 3 days. (Patient taking differently: Take 1 Tablet by mouth in the morning. Take 1 tablet by mouth every 3-4 days .) 36 Tablet 3 oxyCODONE-Acetaminophen 5-325 MG Oral Tablet (Percocet) Take 1 Tablet by mouth every 6 hours as needed for Pain, Severe. (Patient not taking: Reported on 01/25/2024) 12 Tablet 0 Ondansetron 4 MG Oral Tablet Disintegrating (Zofran) Place 1 Tablet on tongue every 8 hours as needed for Nausea. dissolve on tongue. (Patient not taking: Reported on 09/26/2023) 20 Tablet 0 Tamsulosin HCl 0.4 MG Oral Capsule (Flomax) Take 1 Capsule by mouth in the morning. (Patient not taking: Reported on 10/13/2023) 30 Capsule 0 Gabapentin 300 MG Oral Capsule (Neurontin) Take 1 capsule 3 days per week 45 Capsule 3 Turmeric 500 MG Oral Capsule Take 1 Capsule by mouth in the morning. Nicotine Polacrilex 4 MG Mouth/Throat Lozenge (Nicorette) Use 1 lozenge at onset of nicotine craving. Max 20 pieces/day. 400 Lozenge 5 Tamoxifen Citrate 20 MG Oral Tablet TAKE 1 TABLET BY MOUTH EVERY MORNING 90 Tablet 3 Nicotine 14 MG/24HR Transdermal Patch 24 Hour (Nicoderm CQ) Place 1 Patch over 24 hours topically on the skin daily. 28 Patch 5 No current facility-administered medications for this visit. Allergies as of 07/18/2024 - Reviewed 07/18/2024 Allergen Reaction Noted Lipitor [atorvastatin] 07/19/2022 Metoprolol 03/05/2022 Repatha [evolocumab] 10/13/2023 Statins 04/05/2023 Zetia [ezetimibe] 10/13/2023 Social History Socioeconomic History Marital status: Spouse name: Not on file Number of children: 1 Years of education: Not on file Highest education level: Not on file Occupational History Not on file Tobacco Use Smoking status: Every Day Current packs/day: 0.50 Average packs/day: 0.5 packs/day for 29.7 years (14.8 ttl pk-yrs) Types: Cigarettes Start date: 1994 [...] Transportation Needs: Not on file Social Connections: Unknown (02/21/2024) Social Connections How often do you feel lonely or isolated from those around you? (Adult - for ages 18 years and over): Not on file Housing Stability: Not on file Family History Problem Relation Name Age of Onset Diabetes Mother Cataracts Mother Heart attack Father 64 Heart attack Grandfather (Maternal) Heart attack Uncle (Unspecified) Breast Cancer No significant family history ROS: GEN: no weight loss, fever, fatigue HEENT: no changes in vision or hearing, no sinus problems, no sore throat, no hoarseness RESPIRATORY: no cough, wheezing, SOB or change in breathing CARDIOVASCULAR: no exertional chest pain, dyspnea, palpitations GI: no melena, hemetemesis, no vomiting or diarrhea : no dysuria, hematuria, frequency MUSCULOSKELETAL: no change in joint pains, no new arthritis PSYCHIATRIC: no significant anxiety or depression, unchanged sleep pattern HEME: no bleeding tendency, no clotting tendency NEURO: no significant headache, no seizures , no tremors SKIN: no new rashes, no itching PHYSICAL EXAM Constitutional: alert, healthy, no distress, well nourished, and well developed Wt 69.9 kg (154 lb) | LMP 06/17/2017 | BMI 24.86 kg/m² | BSA 1.8 m² Constitutional: alert, healthy, well nourished Head: normocephalic, atraumatic Eyes: conjunctiva non-injected, sclera white Neck: supple, no adenopathy Lungs: clear to auscultation, breath sounds are equal and symmetric Heart: regular rate & rhythm and no murmur, gallops or rubs Abdomen: soft, non-tender Back: normal curvature, normal ROM, no CVA tenderness Extremities: no edema, no skin discoloration Neuro: alert, gait normal, motor normal Skin: no obvious rashes or significant lesions RIGHT BREAST: The breasts are symmetrical without skin or nipple changes with the exception of leftbreast postsurgical and radiation changes. There are no dominant masses. There are no localized areas of asymmetrical nodularity or thickening. There is no regional adenopathy in the supraclavicular or axillary areas. No evidence of mass, skin retraction, nipple inversion, Pagets, peau d'orange, arm edema, nipple discharge, palpable axillary adenopathy, or palpable supraclavicular adenopathy. COSMETIC OUTCOME: N/A ARM MEASUREMENTS: N/A LEFT BREAST: The breasts are symmetrical without skin or nipple changes with the exception of post-surgical and post-radiation changes. There are no dominant masses. There are no localized areas of asymmetrical nodularity or thickening. There is no regional adenopathy in the supraclavicular or axillary areas. No evidence of mass, skin retraction, nipple inversion, Pagets, peau d'orange, arm edema, nipple discharge, palpable axillary adenopathy, or palpable supraclavicular adenopathy. COSMETIC OUTCOME (if applicable): Good ARM MEASUREMENTS: N/A BREAST IMAGING: Review of the BILATERAL screening [place] mammogram performed 06/14/2024 reveals no evidence of malignancy and no significant masses, calcifications, or other abnormalities. IMPRESSION: Sherry Barahona is now 3 years following left for a invasive ductal carcinoma. No evidence of disease. PLAN: Return to Breast Clinic in 1 years with a bilateral screening mammogram. Continue monthly self examination. Contact the physician if there are any breast changes. FOLLOW UP: one year Johny Ríos MD 07/18/2024 1:59 PM documented in this encounter Nursing Notes * Dee Camilo MED ASSIST - 07/18/2024 9:49 AM EST Outdoor Guide Documentation Provider requested supervisor of officials. Name of supervisor of officials: dee camilo * Dee Camilo MED ASSIST - 07/18/2024 9:38 AM EST Chief Complaint Patient presents with Follow Up Follow up checking. Verified patient. documented in this encounter Plan of Treatment Upcoming Encounters Date Type Department Care Team (Late st Contact Info) Description 07/31/2024 8:15 AM EST Office Visit Urology, [facility] [address] [facility] [place] [address] Jace Ríos MD [address] [place] [address] [place] [id number] 11/12/2024 12:30 PM EDT Office Visit Hematology/Oncology [facility] [address] [facility] [place] [address] Pranav Mckeon MD [address] [facility] [place] [address] 06/17/2025 10:45 AM EDT Imaging Radiology [facility] [address] [facility] [address] [facility] [place] [address] 06/26/2025 10:45 AM EDT Office Visit General Surgery, [facility] [address] [place] [address] Johny Ríos MD [address] [place] [address] Scheduled Procedures Name Priority Associated Diagnoses Date/Ti me COLONOSCOPY FLEXIBLE PROXIMA L DIAGNOSTIC Recall History of colonic polyps Health Maintenance Due Date Last Done Comments HIV Screening 11/16/1983 Hepatitis C Screening 1986 Hepatitis B Vaccine (1 of 3 - 19+ 3-dose series) 11/16/1987 Pneumococcal Vaccine: Pediatrics (0 to 5 Years) and At-Risk Patients (6 to 64 Years) (2 of 2 - PCV) 01/08/2010 01/08/2009 [...] this encounter Medical Devices Implanted Type Area Class C Truck Driver Device Identifier Shelf Expiration Date Model / Serial / Lot Port Power Mri W/8fr Cath - [id number] Implanted:Qty : 1 on 09/24/2021 by Johny Ríos MD at OR [facility] Right: Subclavian CR BARD : PERIPHERAL VASCULAR 11/02/2022 [id number] / / [id number] documented as of this encounter Visit Diagnoses Diagnosis Infiltrating duct and lobular carcinoma of left breast (HCC)- Primary Screening mammogram for breast cancer documented in [...] and were consensually agreed upon. Care Teams Local Company Truck Driver Relationship Specialty Start Date End Date Aleida Raines PA-C [address] [place] [address] [place] [address] PCP - General Physician Care Information Associate 06/12/24 documented as of this encounter"
--- OUTSIDE RECORDS SUMMARY | 2025-01-04 00:16 | External Medical Summary | Summary of Care ---
Author Name Unknown Organization [facility] Address [address] [facility] [place] [address] Phone [phone] Care Team Providers Care Change Management Expert Name Role Phone Aleida Raines PA-C Primary Care Provider +1- [phone] Encounter Details Date Type Department Care Team (Late st Contact Info) Description 07/30/2024 Telephone Urology, [facility] [address] [facility] [place] [address] Jace Ríos MD [address] [place] [address] Allergies Active Allergy Reactions Criticality Noted Date Comments Atorvastatin 07/19/2022 Muscles aches Metoprolol 03/05/2022 palpitations Evolocumab 10/13/2023 Back pain Statins 04/05/2023 Palpitations, msk aches Ezetimibe 10/13/2023 Muscle and joint aches and shortness of breath documented as of this encounter (statuses as of 07/30/2024) Medications Ibuprofen 200 MG Oral Tablet Take 1 Tablet by mouth every 4 hours as needed for Pain. Active Cholecalciferol (VITAMIN D3) 2000 units CapsuleIndications :Vitamin D deficiency Take 1 Capsule by mouth in the morning. 30 Cap 5 01/31/20 19 Active Ketoconazole 2 % External Cream [...] Nausea. dissolve on tongue. 20 Tablet 09/12/19 Active Additional Information Patient not taking.Reported on [...] as of this encounter (statuses as of 07/30/2024) Active Problems Problem Noted Date Diagnosed Date History of breast cancer 10/26/2022 Encounter for adjustment and management of vascular access device 06/23/2022 Infiltrating duct and lobular carcinoma of left breast 08/25/2021 Tobacco use disorder 10/04/2007 Ovarian cyst documented as of this encounter (statuses as of 07/30/2024) Resolved Problems Problem Noted Date Diagnosed Date Resolved Date Adjustment disorder with depressed mood 04/28/2016 01/26/2019 Abnormal Papanicolaou smear of vagina and vaginal HPV 01/26/2019 Overview (09/25/2007): had laser documented as of this encounter (statuses as of 07/30/2024) Immunizations Name Administration Dates Next Due Pneumococcal [...] 07/31/2024 8:15 AM EST Office Visit Urology, [facility] [address] [facility] [place] [address] Jace Ríos MD [address] [place] [address] 11/12/2024 12:30 PM EDT Office Visit Hematology/Oncology [facility] [place] [address] [place] [address] Pranav Mckeon MD [address] [place] [address] 06/17/2025 10:45 AM EDT Imaging Radiology [facility] [address] [facility] [address] [place] [address] 06/26/2025 10:45 AM EDT Office Visit General Surgery, [facility] [address] [place] [address] Johny Ríos MD [address] [place] [address] Scheduled Procedures Name Priority Associated Diagnoses Date/Ti [...] this encounter Medical Devices Implanted Type Area Sexual Abuse Counsellor Device Identifier Shelf Expiration Date Model / Serial / Lot Port Power Mri W/8fr Cath - [id number] Implanted:Qty : 1 on 09/24/2021 by Johny Ríos MD at OR [facility] Right: Subclavian CR BARD : PERIPHERAL VASCULAR 11/02/2022 [id number] / / [id number] documented as of this encounter Advance Directives [...] and were consensually agreed upon. Care Teams Change Management Expert Relationship Specialty Start Date End Date Aleida Raines PA-C [address] [place] [address] [place] [address] PCP - General Physician Anatomy And Physiology Instructor 06/12/24 documented as of this encounter
--- OUTSIDE RECORDS SUMMARY | 2025-01-04 00:16 | External Medical Summary | Summary of Care ---
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 Name Role Phone Connie Lebron MD Primary Care Provide r Reason for Visit * Reason Comments Re-Check Encounter Details Date Type Department Care Team (Latest Contact Info) Description 11/13/2024 11:40 AM EDT Office Visit Family Medicine [address] [phone] Connie Lebron MD [address] [place] [address] [place] [id number] Prediabetes*; Vitamin D deficiency; History of breast cancer; S/P radiation therapy; History of chemotherapy; Mixed hyperlipidemia Allergies Active Allergy Reactions Criticality Noted Date Comments Atorvastatin 07/19/2022 Muscles aches Metoprolol 03/05/2022 palpitations Evolocumab 10/13/2023 Back pain Statins 04/05/2023 Palpitations, msk aches Ezetimibe 10/13/2023 Muscle and joint aches and shortness of breath documented as of this encounter (statuses as of 11/13/2024) Medications Ibuprofen 200 MG Oral Tablet Take 1 Tablet by mouth every 4 hours as needed for Pain. Active Cholecalciferol (VITAMIN D3) 2000 units CapsuleIndication s:Vitamin D deficiency Take 1 Capsule by mouth in the morning. 30 Cap 5 019 Active Vitamin E 100 UNIT Oral Capsule Take 1 Capsule by mouth in the morning. Active Metamucil Fiber Oral Tablet Chewable Take by mouth. Activ e Rosuvastatin Calcium 5 MG Oral Tablet (Crestor) Take 1 tablet by mouth every 3 days. 36 Tablet 3 023 Active Additional Information Patient taking differently: 5 mg Oral Daily(AM), Take 1 tablet by mouth every 3-4 days, Reported on 11/13/2024 Gabapentin 300 MG Oral Capsule (Neurontin)Indica tions:Infiltratin g duct and lobular carcinoma of left breast (HCC) Take 1 capsule 3 days per week 45 Capsule 3 024 Active Turmeric 500 MG Oral Capsule Take 1 Capsule by mouth in the morning. Active Tamoxifen Citrate 20 MG Oral TabletIndications :Infiltrating duct and lobular carcinoma of left breast (HCC) TAKE 1 TABLET BY MOUTH EVERY MORNING 90 Tablet 3 024 Active Vitamin B 12 250 MCG Oral Lozenge Take by mouth. Active Ketoconazole 2 % External Cream Apply to feet twice daily x 4-6 weeks 60 g 5 023 2024 Discontinued oxyCODONE-Acetami nophen 5-325 MG Oral Tablet (Percocet) Take 1 Tablet by mouth every 6 hours as needed for Pain, Severe. 12 Tablet 024 2024 Discontinued(M edication List Clean Up) Ondansetron 4 MG Oral Tablet Disintegrating (Zofran) Place 1 Tablet on tongue every 8 hours as needed for Nausea. dissolve on tongue. 20 Tablet 024 2024 Discontinued(M edication List Clean Up) Tamsulosin HCl 0.4 MG Oral Capsule (Flomax) Take 1 Capsule by mouth in the morning. 30 Capsule 024 2024 Discontinued(M edication List Clean Up) Nicotine Polacrilex 4 MG Mouth/Throat Lozenge (Nicorette) Use 1 lozenge at onset of nicotine craving. Max 20 pieces/day. 400 Lozenge 5 024 2024 Discontinued(M edication List Clean Up) Nicotine 14 MG/24HR Transdermal Patch 24 Hour (Nicoderm CQ) Place 1 Patch over 24 hours topically on the skin daily. 28 Patch 5 024 2024 Discontinued(M edication List Clean Up) documented as of this encounter (statuses as of 11/13/2024) Active Problems Problem Noted Date Diagnosed Date S/P radiation therapy 11/13/2024 History of chemotherapy 11/13/2024 Prediabetes 11/13/2024 Mixed hyperlipidemia 11/13/2024 History of breast cancer 10/26/2022 Encounter for adjustment and management of vascular access device 06/23/2022 Tobacco use disorder 10/04/2007 Ovarian cyst documented as of this encounter (statuses as of 11/13/2024) Resolved Problems Problem Noted Date Diagnosed Date Resolved Date 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 08/25/2021 11/13/2024 Adjustment disorder with depressed mood 04/28/2016 01/26/2019 Abnormal Papanicolaou smear of vagina and vaginal HPV 01/26/2019 Overview (09/25/2007): had laser documented as of this encounter (statuses as of 11/13/2024) Immunizations Name Administration Dates Next Due Pneumococcal [...] Sign Reading Time Taken Comments Blood Pressure 119/80 11/13/2024 11:23 AM EDT Pulse 88 11/13/2024 11:23 AM EDT Temperature 36.1 °C (97 °F) 11/13/2024 11:23 AM EDT Respiratory Rate - - Oxygen Saturation - - Inhaled Oxygen Concentration - - Weight 68.9 kg (152 lb) 11/13/2024 11:23 AM EDT Height 167.6 cm (5' 6") 11/13/2024 11:23 AM EDT Body Mass Index 24.53 11/13/2024 11:23 AM EDT documented in this encounter Progress Notes * Connie Lebron MD - 11/13/2024 11:41 AM EDT Subjective: HPI: Sherry Barahona is a 53 year old female with L breast invasive ductal carcinoma s/p L partial mastectomy and chemoradiation, HLD, Neuropathy, Prediabetes seen for Currently on tamoxifen every 3rd day - was having SE - has been on it for 3 years - no previous dexa scan HLD: - crestor every 3rd day - due to SE Takes Gabapentin every 2 days for neuropathy Prediabetes: - pt did not know she had prediabetes Patient Active Problem List Diagnosis Ovarian cyst Tobacco use disorder Infiltrating duct and lobular carcinoma of left breast (HCC) Encounter for adjustment and management of vascular access device History of breast cancer S/P radiation therapy History of chemotherapy Prediabetes Mixed hyperlipidemia Current Outpatient Medications Medication Sig Dispense Refill [...] No current facility-administered medications for this visit. Past Medical History: Diagnosis Date Abnormal Papanicolaou [...] performed by Brittny García DO at ENDOSCOPY [facility] CT ABDOMEN/PELVIS 03/11/2015 unremarkable EXC BREAST LESION RADMARK Left 08/25/2021 EXCISION OF BREAST LESION RADIOLOGICAL MARKER performed by Johny Ríos MD at OR [facility] FRAGMENT KIDNEY STONE BY SHOCK WAVE Left 09/12/2023 LEFT LITHOTRIPSY EXTRACORPOREAL SHOCK WAVE performed by Jace Ríos MD at OR [facility] HC BREAST BRYAN SCREEN BILATERAL Bilateral 06/13/2023 heterogeneously dense, postsurgical changes on left, stable ,2, repeat 1 year HC DIGITAL BREAST TOMOSYNTHESIS; UNILATERAL Right 07/21/2020 heterogeneously dense category 2 IDENTIFY SENTINEL NODE, RADIOACTIVE TRACER Left 08/25/2021 INJECTION PROCEDURE FOR IDENTIFICATION SENTINEL NODE performed by Johny Ríos MD at OR [facility] INFORMATION age 22(?) laser surgery of cervix INFORMATION age 22 or 23 (?) laparoscopy for ovarian cyst INSER TUNN ACC DEV;5 YRS/OLDER Right 09/24/2021 INSERT TUNNELED CENTRAL VENOUS ACCESS WITH SUBQ PORT performed by Johny Ríos MD at OR [facility] MAMMOGRAM SCREENING BILATERAL 01/13/2010 fibroglandular changes, category 1 normal MAMMOGRAM SCREENING BILATERAL Bilateral 06/01/2016 heterogeneously dense, category 2, scattered calcifications. repeat 1 year MAMMOGRAM SCREENING BILATERAL Bilateral 06/02/2017 heterogeneously dense, category 2 MAMMOGRAM SCREENING-BILATERAL 01/24/2009 Left 0 further study needed, right 1 normal MASTECTOMY, PARTIAL Left 08/25/2021 MASTECTOMY PARTIAL performed by Johny Ríos MD at OR [facility] RADIATION THERAPY Left 02/23/2022 5130 cGy utilizing hypofractionation SURGICAL PROCEDURE ONLY Right 12/21/2023 Right port remove by Dr. Johny Ríos. US GUIDED BREAST BIOPSY LEFT Left 07/31/2021 Invasive carcinoma with lobular & ductal features US PELVIS TRANS-ABDOMINAL AND TRANS-VAGINAL 06/04/2015 2 uterine fibroids Review of patient's allergies indicates: Allergen Reactions Lipitor [Atorvastatin] Muscles aches Metoprolol palpitations Repatha [Evolocumab] Back pain Statins Palpitations, msk aches Zetia [Ezetimibe] Muscle and joint aches and shortness of breath Family History Problem Relation Name Age of Onset Diabetes Mother Cataracts Mother Heart attack Father 64 Heart attack Grandfather (Maternal) Heart attack Uncle (Unspecified) Breast Cancer No significant family history Social History Tobacco Use Smoking status: Every Day Current packs/day: 0.50 Average packs/day: 0.5 packs/day for 30.0 years (15.0 ttl pk-yrs) Types: Cigarettes Start date: 1994 Smokeless tobacco: Never Substance Use Topics Alcohol use: Yes Comment: On occasion Vaping/E-Cigarette Use Vaping/E-Cigarette Use Never User Vaping/E-Cigarette Substances Vaping/E-Cigarette Devices ROS: -Per HPI OBJECTIVE: BP 119/80 | Pulse 88 | Temp 97 °F (36.1 °C) (Tympanic) | Ht 5' 6" (1.676 m) | Wt 152 lb (68.9 kg)| LMP 06/17/2017 | BMI 24.53 kg/m² | BSA 1.79 m² PHYSICAL EXAM: Vitals are reviewed General:. NAD, well developed HEENT:. Normal Conjunctiva, EOMI Cardiac:. Normal S1, S2, no murmur Lungs:. CTA, no wheezing or crackles MSK:. Normal gait Psych:. AAOx3, normal affect ASSESSMENT/PLAN: Discussed prediabetic diet Labs ordered Will get dexa scan after completing tamoxifen Prediabetes (Primary) - HEMOGLOBIN A1C Vitamin D deficiency - 25-HYDROXY VITAMIN D History of breast cancer - CBC WITH WBC DIFFERENTIAL S/P radiation therapy - CBC WITH WBC DIFFERENTIAL - COMPREHENSIVE METABOLIC PANEL History of chemotherapy - CBC WITH WBC DIFFERENTIAL - COMPREHENSIVE METABOLIC PANEL Mixed hyperlipidemia - COMPREHENSIVE METABOLIC PANEL Follow-up: Return in about 6 months (around 05/16/2025). | Check-out note: Pls help pt get a cardiology follow up Connie Lebron MD Family medicine, [address] [id number] documented in this encounter Nursing Notes * Khalida Pendleton LPN - 11/13/2024 11:24 AM EDT Return - to establish Possibly derm referral for spots on face near eyes documented in this encounter Plan of Treatment Upcoming Encounters Date Type Department Care Team (Late st Contact Info) Description 11/21/2024 2:00 PM EDT Office Visit Hematology/Oncology [facility] [address] [place] [phone] [facility] Roche [facility] [address] [facility] [address] 12/05/2024 10:00 AM EDT Cardiac Studies Cardiac Studies, [facility] [address] [place] [address] 05/17/2025 11:00 AM EDT Office Visit Family Medicine [address] [place] [phone] Ladi Hunter MD [address] [place] [address] [place] [phone] 05/21/2025 8:30 AM EDT Office Visit Cardiology, [facility] [address] [place] [address] Dena Rodriguez CRNP [address] [place] [address] 06/17/2025 10:45 AM EDT Imaging Radiology [facility] [address] [place] [phone] 07/03/2025 10:45 AM EDT Office Visit General Surgery, [facility] [address] [place] [phone] Johny Ríos MD [address] [place] [address] Scheduled Orders Name Type Priority Associated Diagnoses Orde r Schedule HEMOGLOBIN A1C Lab Routine Prediabetes Ordered: 11/13/2024 25-HYDROXY VITAMIN D Lab Routine Vitamin D deficiency Ordered: 11/13/2024 CBC WITH WBC DIFFERENTIAL Lab Routine History of breast cancer S/P radiation therapy History of chemotherapy Ordered: 11/13/2024 COMPREHENSIVE METABOLIC PANEL Lab Routine S/P radiation therapy History of chemotherapy Mixed hyperlipidemia Ordered: 11/13/2024 Scheduled Procedures Name Priority Associated Diagnoses Date/Ti [...] 2018 Depression Screening 01/27/2020 01/26/2019 COVID-19 Vaccine (1 - season) 2024 Influenza Vaccine (FLU shot) [...] this encounter Medical Devices Implanted Type Area Systems Consultant Device Identifier Shelf Expiration Date Model / Serial / Lot Port Power Mri W/8fr Cath - [id number] Implanted:Qty : 1 on 09/24/2021 by Johny Ríos MD at OR [facility] Right: Subclavian CR BARD : PERIPHERAL VASCULAR 11/02/2022 [id number] / / [id number] documented as of this encounter Visit Diagnoses Diagnosis Prediabetes- Primary Other abnormal glucose Vitamin D deficiency Unspecified vitamin D deficiency History of breast cancer Personal history of malignant neoplasm of breast S/P radiation therapy Convalescence following radiotherapy History of chemotherapy Personal history of antineoplastic chemotherapy Mixed hyperlipidemia Screening mammogram for breast cancer documented in [...] and were consensually agreed upon. Care Teams Fire Engine Operator Relationship Specialty Start Date End Date Connie Lebron MD [address] [place] [address] [place] [phone] PCP - General Family Medicine 09/24/24 documented as of this encounter
--- NOTE | 2025-01-04 02:00 | XRay Report ---
Exam(s): XR CXR 1 VIEW EXAM: XR Chest, 1 View CLINICAL HISTORY: Reason for exam: Chest pain, nonspecific. TECHNIQUE: Frontal view of the chest. COMPARISON: No relevant prior studies available. FINDINGS: Lungs: Mild to moderate peribronchial thickening of the central lower lobe bronchi with increased interstitial opacities in the lower lobes. No consolidation. Pleural space: Unremarkable. No pneumothorax. Heart: Unremarkable. No cardiomegaly. Mediastinum: Unremarkable. Normal mediastinal contour. Bones/joints: Unremarkable. No acute fracture. IMPRESSION: Bronchitis, which may be of infectious or inflammatory etiologies. No consolidation or pleural effusion. Electronically signed by: Tatianna Sin MD 01/04/25 01:59 AM
--- NOTE | 2025-01-04 02:26 | CT Scan Report ---
Exam(s): CTA CHEST IV Amt: 115 ml optiray 320 EXAM: CT Angiography Chest With Intravenous Contrast CLINICAL HISTORY: Reason for exam: CP, Hx breast ca, 17k wbc. TECHNIQUE: Axial computed tomographic angiography images of the chest with intravenous contrast. CTDI is 14.25 mGy and DLP is 7.12 mGy-cm. Automated exposure control was utilized for the study. A dose lowering technique was utilized adhering to the principles of ALARA. MIP reconstructed images were created and reviewed. COMPARISON: None FINDINGS: Pulmonary arteries: Small pulmonary emboli in the subsegmental pulmonary arteries to the right lower lobe. Aorta: No acute findings. No aortic aneurysm or dissection. Lungs: Emphysematous changes. Mild dependent atelectasis bilaterally. No other focal consolidation. Pleural space: Unremarkable. No significant effusion. No pneumothorax. Heart: Unremarkable. No cardiomegaly. No significant pericardial effusion. No evidence of RV dysfunction. Mediastinum: Small hiatal hernia. Thyroid: Small hypodense nodules in the right thyroid lobe could be further evaluated with ultrasound if clinically indicated. Bones/joints: Mild degenerative changes of the spine. Old right-sided rib fracture deformity. No dislocation. Soft tissues: Small calcifications of the breasts. Lymph nodes: Unremarkable. No enlarged lymph nodes. IMPRESSION: 1. Small pulmonary emboli in the subsegmental pulmonary arteries to the right lower lobe. 2. No aortic aneurysm or dissection. 3. Emphysematous changes. Communications: Call Doctor Pulmonary Embolism Electronically signed by: Jovanny Brandt M.D. 01/04/25 02:25 AM
--- NOTE | 2025-01-04 03:33 | History & Physical Report ---
Date of Service January 04, 2025 Assessment & Plan (1) Pulmonary embolism: Plan: Acute PE First event left breast cancer status post surgery/chemoradiation on tamoxifen Rule out LE clot a source Hyperlipidemia on statin Rx prediabetes, hemoglobin A1c of 5.8 from November 2024 anxiety/mood disorder, stable ongoing tobacco abuse Admit to medical telemetry Weight-based Lovenox Hold tamoxifen for now given thromboembolic association. LE venous Dopplers rule out DVT Will request a.m. provider to contact patient's G oncologist (Dr. Mckeon) for recommendations regarding home anticoagulation and tamoxifen Rx. Nicotine patch as needed DVT prophylaxis. Lovenox Full code Text document was generated using [employer] voice recognition software. It may contain grammatical or spelling errors. Kindly contact undersigned for clarification of any documentation item in question. History of Present Illness Chief Complaint: Chest pain Primary Care Provider: Connie Lebron MD History obtained from patient and records. Medical history significant for left breast cancer status post surgery/chemoradiation on tamoxifen, mild MR/TR, prediabetes, hyperlipidemia, anxiety/mood disorder, ongoing tobacco abuse. Patient experienced pleuritic substernal pain with SOB last night. No cough symptoms. Mild relief with aspirin and nitroglycerin administration by EMS. No prior history of blood clots. Medical History as above Surgical History : ESWL, laser surgery of the cervix, a port placement, partial mastectomy left Family History : DM, heart disease Personal/Social history : Half pack daily, occasional EtOH intake, [employer] Allergies Allergy/AdvReac Type Severity Reaction Status Date / Time No Known Allergies Allergy Verified 01/04/25 02:34 Home Medications Medication Instructions Recorded Confirmed Type cholecalciferol (vitamin D3) 50 50 mcg PO DAILY 01/12/22 01/04/25 History mcg (2,000 unit) capsule rosuvastatin 10 mg tablet (Crestor) 10 mg PO .3 times/week 12/23/23 01/04/25 History tamoxifen 20 mg tablet 20 mg PO Q72H 12/23/23 01/04/25 History turmeric 400 mg capsule 400 mg PO DAILY 12/23/23 01/04/25 History mecobalamin (vitamin B12) 5,000 5,000 mcg PO DAILY 12/21/24 01/04/25 History mcg disintegrating tablet gabapentin 300 mg capsule 300 mg PO [id number] 01/04/25 01/04/25 History vitamin E 100 unit capsule 100 mg PO DAILY 01/04/25 01/04/25 History Past Med/Surg History Problem List (Updated 01/04/25 @ 05:58 by Alfredo Rg PA-C) Pulmonary embolism (Acute) Malignant neoplasm of upper-inner quadrant of left breast in female, estrogen receptor positive (Chronic 07/31/21) Endometriosis (Chronic) Abdominal pain (Acute) Medical History Abnormal vaginal Pap smear Surgical History History of colonoscopy (03/24/20) History of colonoscopy (03/21/15) History of ultrasound guided needle biopsy (07/31/21) Left Breast History of partial mastectomy of left breast (08/25/21) Left Breast ARMANDO [employer] Localized Partial Masectomy with SNL Biopsy Dr. Johny Ríos at OR [facility] Family History Father No problems noted. Mother No problems noted. Brother No problems noted. Sister No problems noted. Daughter No problems noted. Social History Smoking Status: Current every day smoker Tobacco Type: Cigarettes packs per day: 1; Second Hand Exposure: No; Do You Dip or Chew Tobacco: No; Hx Alcohol Use: No Hx Substance Use: No Preferred Language: Brazilian Communication Ability: Effective Visual Impairment: Limited Hearing Ability: Normal Housing Grant Analyst Required: No Beliefs That Will Affect Care: None marital status: Current Living Situation: Family current occupational status: unemployed How many Children do You have: 1 Feels Safe at Home: Yes Childhood Exposure to Second-Hand Smoke: No Diet Comment: low potassium during the past year weight has: remained stable Dental Care, Regularly: No Assistive Devices: Glasses Review of Systems Review of Systems: As per HPI, all other systems reviewed and negative Physical Exam Physical Exam: GENERAL: Slightly uncomfortable, pleasant, looks older than stated age, no re spiratory distress SKIN: Normal color, warm HEENT: B spectacle, [place] palpebral conjunctivae, no ptosis, dry buccal mucosa NECK : Supple, no tenderness CHEST : Decreased breath sounds, central chest wall tenderness HEART : RRR, no obvious murmurs ABDOMEN: Some distention, nontender EXTREMITIES : No LE swelling/tenderness, palpable pulses, no other conspicuous deformities noted NEUROLOGIC : Coherent, no facial asymmetry, no other gross focality Results & Data Results & Data Vital Signs (Past 12 Hours) Vital Signs Temp Pulse Pulse Resp BP BP Pulse Ox 01/04/25 02:30 87 18 105/75 97 01/04/25 01:49 86 01/04/25 01:05 80 17 109/77 98 01/04/25 00:00 96 H 17 106/85 96 01/03/25 21:50 36.8 C 01/03/25 21:47 109 H 01/03/25 21:40 102 H 18 117/76 94 O2 Del Method 01/04/25 02:30 Room Air 01/04/25 01:49 01/04/25 01:05 Room Air 01/04/25 00:00 Room Air 01/03/25 21:50 01/03/25 21:47 01/03/25 21:40 Room Air Laboratory Results Laboratory Results WBC 17.72 K/ul (4.8-10.8) H 01/03/25 21:58 RBC 4.41 M/uL (4.20-5.40) 01/03/25 21:58 Hgb 13.2 g/dl (12.0-16.0) 01/03/25 21:58 Hct 38.3 % (37.0-47.0) 01/03/25 21:58 MCV 86.8 fL (80.0-100.0) 01/03/25 21:58 MCH 29.9 pg (25.0-34.0) 01/03/25 21:58 MCHC 34.5 g/dL (32.0-36.0) 01/03/25 21:58 RDW Std Deviation 40.1 fL (36.4-46.3) 01/03/25 21:58 RDW Coeff of Dorita 12.5 % (11.5-14.5) 01/03/25 21:58 Plt Count 277 K/uL (130-400) 01/03/25 21:58 MPV 10.5 fL (9.4-12.4) 01/03/25 21:58 Immature Gran % (Auto) 0.5 % 01/03/25 21:58 Neut % (Auto) 77.3 % 01/03/25 21:58 Lymph % (Auto) 15.1 % 01/03/25 21:58 [place] % (Auto) 6.3 % 01/03/25 21:58 Eos % (Auto) 0.5 % 01/03/25 21:58 Baso % (Auto) 0.3 % 01/03/25 21:58 Neut # (Auto) 13.71 K/uL (1.40-6.50) H 01/03/25 21:58 Lymph # (Auto) 2.67 K/uL (1.20-3.40) 01/03/25 21:58 [place] # (Auto) 1.12 K/uL (0.11-0.59) H 01/03/25 21:58 Eos # (Auto) 0.09 K/uL (0.00-0.50) 01/03/25 21:58 Baso # (Auto) 0.05 K/uL (0.00-0.20) 01/03/25 21:58 Immature Gran # (Auto) 0.08 K/uL (0.01-0.20) 01/03/25 21:58 PT 10.0 Seconds (9.0-12.0) 01/03/25 21:58 INR 0.9 (0.9-1.1) 01/03/25 21:58 APTT 27 Seconds (21-31) 01/03/25 21:58 PTT Ratio 1.0 01/03/25 21:58 Sodium 137 mmol/L (136-145) 01/03/25 21:58 Potassium 3.6 mmol/L (3.5-5.1) 01/03/25 21:58 Chloride 107 mmol/L (98-107) 01/03/25 21:58 Carbon Dioxide 21 mmol/L (21-32) 01/03/25 21:58 Anion Gap 9 (3-11) 01/03/25 21:58 BUN 9 mg/dl (6-23) 01/03/25 21:58 Creatinine 0.65 mg/dl (0.6-1.2) 01/03/25 21:58 Est Cr Clr Drug Dosing 97.1 ml/min 01/03/25 21:58 eGFR 103.27 01/03/25 21:58 BUN/Creatinine Ratio 13.8 (10-20) 01/03/25 21:58 Glucose 147 mg/dl (70-99(Fasting)) H 01/03/25 21:58 Calcium 8.2 mg/dl (8.6-10.3) L 01/03/25 21:58 Total Bilirubin 0.2 mg/dl (0.2-1.0) 01/03/25 21:58 AST 12 U/L (13-39) L 01/03/25 21:58 ALT 10 U/L (7-52) 01/03/25 21:58 Alkaline Phosphatase 58 U/L (34-104) 01/03/25 21:58 Troponin I High Sens 6.0 pg/ml (0-14) 01/03/25 21:58 Total Protein 6.1 gm/dl (6.0-8.3) 01/03/25 21:58 Albumin 3.6 gm/dl (3.4-5.0) 01/03/25 21:58 Globulin 2.5 gm/dl (2.5-4.0) 01/03/25 21:58 Albumin/Globulin Ratio 1.4 (0.9-2) 01/03/25 21:58 Ethyl Alcohol mg/dL < 10.0 mg/dl (<10.0) 01/03/25 21:58 Impressions Chest X-Ray 01/03/25 21:46 Exam(s): XR CXR 1 VIEW EXAM: XR Chest, 1 View CLINICAL HISTORY: Reason for exam: Chest pain, nonspecific. TECHNIQUE: Frontal view of the chest. COMPARISON: No relevant prior studies available. FINDINGS: Lungs: Mild to moderate peribronchial thickening of the central lower lobe bronchi with increased interstitial opacities in the lower lobes. No consolidation. Pleural space: Unremarkable. No pneumothorax. Heart: Unremarkable. No cardiomegaly. Mediastinum: Unremarkable. Normal mediastinal contour. Bones/joints: Unremarkable. No acute fracture. IMPRESSION: Bronchitis, which may be of infectious or inflammatory etiologies. No consolidation or pleural effusion. Electronically signed by: Tatianna Sin MD 01/04/25 01:59 AM Chest CTA 01/03/25 22:37 CR Exam(s): CTA CHEST IV Amt: 115 ml optiray 320 EXAM: CT Angiography Chest With Intravenous Contrast CLINICAL HISTORY: Reason for exam: CP, Hx breast ca, 17k wbc. TECHNIQUE: Axial computed tomographic angiography images of the chest with intravenous contrast. CTDI is 14.25 mGy and DLP is 7.12 mGy-cm. Automated exposure control was utilized for the study. A dose lowering technique was utilized adhering to the principles of ALARA. MIP reconstructed images were created and reviewed. COMPARISON: None FINDINGS: Pulmonary arteries: Small pulmonary emboli in the subsegmental pulmonary arteries to the right lower lobe. Aorta: No acute findings. No aortic aneurysm or dissection. Lungs: Emphysematous changes. Mild dependent atelectasis bilaterally. No other focal consolidation. Pleural space: Unremarkable. No significant effusion. No pneumothorax. Heart: Unremarkable. No cardiomegaly. No significant pericardial effusion. No evidence of RV dysfunction. Mediastinum: Small hiatal hernia. Thyroid: Small hypodense nodules in the right thyroid lobe could be further evaluated with ultrasound if clinically indicated. Bones/joints: Mild degenerative changes of the spine. Old right-sided rib fracture deformity. No dislocation. Soft tissues: Small calcifications of the breasts. Lymph nodes: Unremarkable. No enlarged lymph nodes. IMPRESSION: 1. Small pulmonary emboli in the subsegmental pulmonary arteries to the right lower lobe. 2. No aortic aneurysm or dissection. 3. Emphysematous changes. Communications: Call Doctor Pulmonary Embolism Electronically signed by: Jovanny Brandt M.D. 01/04/25 02:25 AM Diagnostic Findings EKG could not be located at time of dictation.
[2025-01-04] MEDS ORDERED: ACETAMINOPHEN 325 MG TAB PO PRN (03:38)
[2025-01-04] MEDS ORDERED: LORazepam 0.5 MG TAB PO PRN (03:38)
[2025-01-04] MEDS ORDERED: PROMETHAZINE 6.25 MG/50.25 ML BAG IV PRN (03:38)
[2025-01-04] MEDS: CALCIUM GLUCONATE 1,000 MG/60 ML BAG IV STA (03:53)
[2025-01-04 03:57] LABS: Magnesium 1.8 mg/dl (1.7-2.4)
[2025-01-04] MEDS: KETOROLAC TROMETHAMINE 15 MG/ML VIAL IV STA (04:10)
[2025-01-04] MEDS: ENOXAPARIN 80 MG/0.8 ML SYR SQ STA (04:11)
[2025-01-04] MEDS: NSS + 20MEQ KCL 20 MEQ/1,000 ML BAG IV STA (04:52)
[2025-01-04 05:01] LABS: Basophils # (auto) 0.05 K/uL (0.00-0.20); Basophils % (auto) 0.5 %; Eosinophils # (auto) 0.13 K/uL (0.00-0.50); Eosinophils % (auto) 1.2 %; Hematocrit (blood only) 39.3 % (37.0-47.0); Hemoglobin 13.3 g/dl (12.0-16.0); Immature Granulocytes # (auto) 0.03 K/uL (0.01-0.20); Immature Granulocytes % (auto) 0.3 %; Lymphocytes # (auto) 2.47 K/uL (1.20-3.40); Lymphocytes % (auto) 23.5 %; Mean Corpuscular Hemoglobin 29.7 pg (25.0-34.0); Mean Corpuscular Hgb Conc 33.8 g/dL (32.0-36.0); Mean Corpuscular Volume 87.7 fL (80.0-100.0); Mean Platelet Volume 10.3 fL (9.4-12.4); Monocytes # (auto) 0.81 K/uL (0.11-0.59); Monocytes % (auto) 7.7 %; Neutrophils # (auto) 7.03 K/uL (1.40-6.50); Neutrophils % (auto) 66.8 %; Platelet Count 247 K/uL (130-400); RDW Coefficient of Variation 12.5 % (11.5-14.5); RDW Standard Deviation 40.2 fL (36.4-46.3); Red Blood Count 4.48 M/uL (4.20-5.40); White Blood Count 10.52 K/ul (4.8-10.8)
[2025-01-04 05:30] LABS: BUN Creatinine Ratio 13.1 (10-20); Calcium 8.6 mg/dl (8.6-10.3); Creatinine Clr Calc Pharmacy 103.5 ml/min; Potassium 4.4 mmol/L (3.5-5.1)
--- NOTE | 2025-01-04 07:23 | Ultrasound Report ---
EXAM: US venous doppler LE BI CLINICAL HISTORY: PE TECHNIQUE: Ultrasound examination of bilateral lower extremity veins was performed in real time and duplex. One or more of the following were performed- spectral analysis, resistive index, waveform analysis, and pulsed Doppler. COMPARISON: None. FINDINGS: Normal phasic, non-pulsatile and spontaneous flow is noted in bilateral common femoral, superficial femoral, popliteal and posterior tibial and peroneal veins. Visualized veins of both lower extremities demonstrate normal compressibility. No sonographic evidence of acute deep vein thrombosis (DVT) is detected in the visualized veins of both lower extremities. Compression and Augmentation: All evaluated veins compress fully with applied transducer pressure. Augmentation of venous flow is noted with distal compression. Additional Findings: Partially reducible fat containing right femoral hernia. IMPRESSION: 1. No sonographic evidence of acute DVT detected in bilateral common femoral, superficial femoral, popliteal and posterior tibial and peroneal veins, at the time of examination. 2. Partially reducible fat containing right femoral hernia. Disclaimer: DVT could be missed early in the disease when clot burden is minimal. For patients with moderate and high pretest probability of DVT and negative ultrasound, the [employer] clinical guidelines recommend testing with a D-dimer assay or repeat ultrasound in 5-7 days. If symptoms worsen, the Society of radiologists in ultrasound recommends repeating ultrasound even earlier. Electronically signed by Santos Walsh 01-04-2025 07:23 AM
[2025-01-04] MEDS: oxyCODONE HCL IR 5 MG TAB (IMMEDIATE RELEASE) PO PRN (08:19)
[2025-01-04] MEDS: ROSUVASTATIN CALCIUM 10 MG TAB PO SCH (08:33)
[2025-01-04] MEDS ORDERED: ROSUVASTATIN CALCIUM 10 MG TAB PO SCH (09:30)
[2025-01-04] MEDS ORDERED: GABAPENTIN 300 MG CAP PO SCH (09:30)
[2025-01-04] MEDS ORDERED: oxyCODONE HCL IR 5 MG TAB (IMMEDIATE RELEASE) PO PRN (11:54)
--- NOTE | 2025-01-04 12:26 | Hospitalist Progress Note ---
Date of Service January 04, 2025 Assessment & Plan (1) Pulmonary embolism: Plan Pt is a 54yoF with PMhx significant for left breast cancer status post surgery/chemoradiation on tamoxifen, mild MR/TR, prediabetes, hyperlipidemia, anxiety/mood disorder, ongoing tobacco abuse who presents with chest pressure and found to have a PE. Chest Pain Pulmonary Emboli COPD Pt presented with chest pain EKG noting sinus tachycardia Trop normal x1 Chest XRAY noting bronchitis CTA chest noting PE, concern for emphysematous changes Doppler US with no DVT Weight-based Lovenox initally Held tamoxifen on admission given thromboembolic association Case discussed with pt's oncologist Dr Mckeon from [facility] hematology who recommended the following: -switching to Eliquis and continuing her tamoxifen. His office will call the pt to schedule Empiric doxycycline for bronchitis Switched o Eliquis BID PRN pain meds Continue to monitor Hx of breast Cancer left breast cancer status post surgery/chemoradiation on tamoxifen Pt takes tamoxifen every 3 days Chronic Medical Problems: Hyperlipidemia on statin Rx prediabetes, hemoglobin A1c of 5.8 from November 2024 anxiety/mood disorder, stable ongoing tobacco abuse Diet: regular DVT prophylaxis. 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 His office will call the pt to schedule Review of Systems Review of Systems: All systems reviewed & are unremarkable except as noted in Subjective Physical Exam Physical Exam: General: Alert, oriented. No acute distress HEENT: NC/AT CV: RRR Resp: Breath sounds clear bilaterally, no increased effort of breathing Abdomen: Soft, nontender Extremities: No edema in lower extremities bilaterally. Results & Data Results & Data Vital Signs (Past 12 Hours) Vital Signs Temp Pulse Pulse Pulse Resp BP BP 01/04/25 10:28 36.6 C 86 121/78 01/04/25 10:28 01/04/25 10:00 87 26 H 01/04/25 10:00 116/75 01/04/25 10:00 116/75 01/04/25 10:00 116/75 01/04/25 09:30 112/79 01/04/25 09:30 112/79 01/04/25 09:30 112/79 01/04/25 09:30 88 17 01/04/25 09:03 85 21 01/04/25 09:00 123/81 01/04/25 09:00 123/81 01/04/25 09:00 123/81 01/04/25 08:54 88 18 01/04/25 08:33 87 23 01/04/25 08:30 113/82 01/04/25 08:21 101 H 30 H 01/04/25 08:21 100 H 24 122/81 01/04/25 08:06 89 23 01/04/25 08:00 122/81 01/04/25 08:00 122/81 01/04/25 07:42 96 H 22 01/04/25 07:36 80 21 01/04/25 07:30 106/71 01/04/25 07:29 83 01/04/25 07:06 80 21 01/04/25 07:00 120/77 01/04/25 06:39 77 21 01/04/25 06:30 115/80 01/04/25 06:15 76 19 01/04/25 06:00 76 19 01/04/25 06:00 110/75 01/04/25 06:00 110/75 01/04/25 06:00 77 17 110/75 01/04/25 05:45 76 01/04/25 05:33 79 19 01/04/25 05:30 104/68 01/04/25 05:27 76 19 01/04/25 05:09 77 21 01/04/25 05:01 79 17 107/70 01/04/25 05:00 107/70 01/04/25 05:00 107/70 01/04/25 04:58 106/77 01/04/25 04:58 106/77 01/04/25 04:51 82 14 01/04/25 04:09 85 23 01/04/25 03:36 83 23 01/04/25 03:30 131/98 01/04/25 03:30 131/98 01/04/25 03:24 92 H 25 H 01/04/25 03:00 84 21 01/04/25 03:00 125/86 01/04/25 03:00 125/86 01/04/25 03:00 125/86 01/04/25 02:30 86 25 H 01/04/25 02:30 105/75 01/04/25 02:30 87 18 105/75 01/04/25 01:49 86 01/04/25 01:05 80 17 109/77 Pulse Ox Pulse Ox O2 Del Method O2 Del Method 01/04/25 10:28 97 Room Air 01/04/25 10:28 97 Room Air 01/04/25 10:00 95 01/04/25 10:00 01/04/25 10:00 01/04/25 10:00 01/04/25 09:30 01/04/25 09:30 01/04/25 09:30 01/04/25 09:30 95 01/04/25 09:03 94 01/04/25 09:00 01/04/25 09:00 01/04/25 09:00 01/04/25 08:54 95 01/04/25 08:33 94 01/04/25 08:30 01/04/25 08:21 96 01/04/25 08:21 97 Room Air 01/04/25 08:06 01/04/25 08:00 01/04/25 08:00 01/04/25 07:42 01/04/25 07:36 93 01/04/25 07:30 01/04/25 07:29 01/04/25 07:06 01/04/25 07:00 01/04/25 06:39 01/04/25 06:30 01/04/25 06:15 01/04/25 06:00 01/04/25 06:00 01/04/25 06:00 01/04/25 06:00 97 Room Air 01/04/25 05:45 01/04/25 05:33 01/04/25 05:30 01/04/25 05:27 01/04/25 05:09 01/04/25 05:01 97 Room Air 01/04/25 05:00 01/04/25 05:00 01/04/25 04:58 01/04/25 04:58 01/04/25 04:51 01/04/25 04:09 94 01/04/25 03:36 94 01/04/25 03:30 01/04/25 03:30 01/04/25 03:24 94 01/04/25 03:00 96 01/04/25 03:00 01/04/25 03:00 01/04/25 03:00 01/04/25 02:30 96 01/04/25 02:30 01/04/25 02:30 97 Room Air 01/04/25 01:49 01/04/25 01:05 98 Room Air Diagnostic Findings Chest X-Ray 01/03/25 21:46 Exam(s): XR CXR 1 VIEW EXAM: XR Chest, 1 View CLINICAL HISTORY: Reason for exam: Chest pain, nonspecific. TECHNIQUE: Frontal view of the chest. COMPARISON: No relevant prior studies available. FINDINGS: Lungs: Mild to moderate peribronchial thickening of the central lower lobe bronchi with increased interstitial opacities in the lower lobes. No consolidation. Pleural space: Unremarkable. No pneumothorax. Heart: Unremarkable. No cardiomegaly. Mediastinum: Unremarkable. Normal mediastinal contour. Bones/joints: Unremarkable. No acute fracture. IMPRESSION: Bronchitis, which may be of infectious or inflammatory etiologies. No consolidation or pleural effusion. Electronically signed by: Tatianna Sin MD 01/04/25 01:59 AM Chest CTA 01/03/25 22:37 CR Exam(s): CTA CHEST IV Amt: 115 ml optiray 320 EXAM: CT Angiography Chest With Intravenous Contrast CLINICAL HISTORY: Reason for exam: CP, Hx breast ca, 17k wbc. TECHNIQUE: Axial computed tomographic angiography images of the chest with intravenous contrast. CTDI is 14.25 mGy and DLP is 7.12 mGy-cm. Automated exposure control was utilized for the study. A dose lowering technique was utilized adhering to the principles of ALARA. MIP reconstructed images were created and reviewed. COMPARISON: None FINDINGS: Pulmonary arteries: Small pulmonary emboli in the subsegmental pulmonary arteries to the right lower lobe. Aorta: No acute findings. No aortic aneurysm or dissection. Lungs: Emphysematous changes. Mild dependent atelectasis bilaterally. No other focal consolidation. Pleural space: Unremarkable. No significant effusion. No pneumothorax. Heart: Unremarkable. No cardiomegaly. No significant pericardial effusion. No evidence of RV dysfunction. Mediastinum: Small hiatal hernia. Thyroid: Small hypodense nodules in the right thyroid lobe could be further evaluated with ultrasound if clinically indicated. Bones/joints: Mild degenerative changes of the spine. Old right-sided rib fracture deformity. No dislocation. Soft tissues: Small calcifications of the breasts. Lymph nodes: Unremarkable. No enlarged lymph nodes. IMPRESSION: 1. Small pulmonary emboli in the subsegmental pulmonary arteries to the right lower lobe. 2. No aortic aneurysm or dissection. 3. Emphysematous changes. Communications: Call Doctor Pulmonary Embolism Electronically signed by: Jovanny Brandt M.D. 01/04/25 02:25 AM Venous Doppler Study 01/04/25 03:38 EXAM: US venous doppler LE BI CLINICAL HISTORY: PE TECHNIQUE: Ultrasound examination of bilateral lower extremity veins was performed in real time and duplex. One or more of the following were performed- spectral analysis, resistive index, waveform analysis, and pulsed Doppler. COMPARISON: None. FINDINGS: Normal phasic, non-pulsatile and spontaneous flow is noted in bilateral common femoral, superficial femoral, popliteal and posterior tibial and peroneal veins. Visualized veins of both lower extremities demonstrate normal compressibility. No sonographic evidence of acute deep vein thrombosis (DVT) is detected in the visualized veins of both lower extremities. Compression and Augmentation: All evaluated veins compress fully with applied transducer pressure. Augmentation of venous flow is noted with distal compression. Additional Findings: Partially reducible fat containing right femoral hernia. IMPRESSION: 1. No sonographic evidence of acute DVT detected in bilateral common femoral, superficial femoral, popliteal and posterior tibial and peroneal veins, at the time of examination. 2. Partially reducible fat containing right femoral hernia. Disclaimer: DVT could be missed early in the disease when clot burden is minimal. For patients with moderate and high pretest probability of DVT and negative ultrasound, the [employer] clinical guidelines recommend testing with a D-dimer assay or repeat ultrasound in 5-7 days. If symptoms worsen, the Society of radiologists in ultrasound recommends repeating ultrasound even earlier. Electronically signed by Santos Walsh 01-04-2025 07:23 AM
[2025-01-04] MEDS: ACETAMINOPHEN 1,000 MG/100 ML VIAL IV SCH (12:34)
[2025-01-04] MEDS ORDERED: ENOXAPARIN 80 MG/0.8 ML SYR SQ SCH (18:00)
[2025-01-04] MEDS: APIXABAN 5 MG TABLET PO SCH (21:00)
[2025-01-04] MEDS: DOXYCYCLINE HYCLATE 100 MG CAP PO SCH (21:00)
--- NOTE | 2025-01-05 00:44 | Electrocardiogram Report ---
Test Reason : Blood Pressure : */* mmHG Vent. Rate : 111 BPM Atrial Rate : 111 BPM P-R Int : 128 ms QRS Dur : 78 ms QT Int : 328 ms P-R-T Axes : 35 34 11 degrees QTcB Int : 446 ms Sinus tachycardia Otherwise normal ECG No previous ECGs available Confirmed by Johan Suarez ([id number]) on 01/05/2025 12:43:25 AM Referred By: REFERRED SELF Confirmed By: Johan Suarez
[2025-01-05 03:14] VITALS: TEMP 97.9
[2025-01-05 06:24] LABS: Hematocrit (blood only) 36.4 % (37.0-47.0); Hemoglobin 12.3 g/dl (12.0-16.0); Mean Corpuscular Hemoglobin 29.8 pg (25.0-34.0); Mean Corpuscular Hgb Conc 33.8 g/dL (32.0-36.0); Mean Corpuscular Volume 88.1 fL (80.0-100.0); Mean Platelet Volume 10.1 fL (9.4-12.4); Platelet Count 210 K/uL (130-400); RDW Coefficient of Variation 12.8 % (11.5-14.5); RDW Standard Deviation 41.1 fL (36.4-46.3); Red Blood Count 4.13 M/uL (4.20-5.40)
[2025-01-05 06:56] LABS: BUN Creatinine Ratio 12.7 (10-20); Calcium 8.1 mg/dl (8.6-10.3); Creatinine Clr Calc Pharmacy 97.1 ml/min
[2025-01-05] MEDS: SACCHAROMYCES BOULARDII 250 MG CAP PO SCH (08:48)
[2025-01-05] MEDS: GABAPENTIN 300 MG CAP PO SCH (08:49)
[2025-01-05 11:36] VITALS: BP 106/71; RESP 16; O2SAT 93
--- NOTE | 2025-01-05 12:30 | Discharge Summary ---
Discharge Summary Date of Service January 05, 2025 Principal Dx & Hospital Course #1 = Principal Diagnosis (1) Pulmonary embolism: Plan Pt is a 54yoF with PMhx significant for left breast cancer status post surgery/chemoradiation on tamoxifen, mild MR/TR, prediabetes, hyperlipidemia, anxiety/mood disorder, ongoing tobacco abuse who presents with chest pressure and found to have a PE. Chest Pain Pulmonary Emboli COPD Pt presented with chest pain EKG noting sinus tachycardia Trop normal x1 Chest XRAY noting bronchitis CTA chest noting PE, concern for emphysematous changes Doppler US with no DVT Echo with EF 55-60%, mild TR and MR, no pulm HTN and no ASD Weight-based Lovenox initially Held tamoxifen on admission given thromboembolic association Case discussed with pt's oncologist Dr Mckeon from [facility] hematology who recommended the following: -switching to Eliquis and continuing her tamoxifen. His office will call the pt to schedule Empiric doxycycline for bronchitis- discharged with 4 more days of rx with abx Switched to Eliquis BID- 10mg BID for 6 more days, then 5mg BID PRN pain meds Close Hematology followup after discharge as noted above Close PCP followup as well Hx of breast Cancer left breast cancer status post surgery/chemoradiation on tamoxifen Pt takes tamoxifen every 3 days Follows with [facility] as noted above R femoral hernia Incidentally noted on CT Not incarcerated, nontender PCP followup for further monitoring Chronic Medical Problems: Hyperlipidemia on statin Rx prediabetes, hemoglobin A1c of 5.8 from November 2024 anxiety/mood disorder, stable ongoing tobacco abuse Notes For Next Care Provider As above Medication Changes From Visit Eliquis starter pack for VTE Doxycycline 100mg BID x 4 more days with probiotic Admission HPI Per Admitting Provider History obtained from patient and records. Medical history significant for left breast cancer status post surgery/chemoradiation on tamoxifen, mild MR/TR, prediabetes, hyperlipidemia, anxiety/mood disorder, ongoing tobacco abuse. Patient experienced pleuritic substernal pain with SOB last night. No cough symptoms. Mild relief with aspirin and nitroglycerin administration by EMS. No prior history of blood clots. Medical History as above Surgical History : ESWL, laser surgery of the cervix, a port placement, partial mastectomy left Family History : DM, heart disease Personal/Social history : Half pack daily, occasional EtOH intake, [employer] employee Admission Exam Per Admitting Provider GENERAL: Slightly uncomfortable, pleasant, looks older than stated age, no respiratory distress SKIN: Normal color, warm HEENT: B spectacle, Hart[place] palpebral conjunctivae, no ptosis, dry buccal mucosa NECK : Supple, no tenderness CHEST : Decreased breath sounds, central chest wall tenderness HEART : RRR, no obvious murmurs ABDOMEN: Some distention, nontender EXTREMITIES : No LE swelling/tenderness, palpable pulses, no other conspicuous deformities noted NEUROLOGIC : Coherent, no facial asymmetry, no other gross focality Discharge Exam General: Alert, oriented. No acute distress HEENT: NC/AT CV: RRR Resp: Breath sounds clear bilaterally, no increased effort of breathing Abdomen: Soft, nontender Extremities: No edema in lower extremities bilaterally. Updated Medication List Medication Instructions Recorded Confirmed Type cholecalciferol (vitamin D3) 50 50 mcg PO DAILY 01/12/22 01/04/25 History mcg (2,000 unit) capsule rosuvastatin 10 mg tablet (Crestor) 10 mg PO .3 times/week 12/23/23 01/04/25 History tamoxifen 20 mg tablet 20 mg PO Q72H 12/23/23 01/04/25 History turmeric 400 mg capsule 400 mg PO DAILY 12/23/23 01/04/25 History mecobalamin (vitamin B12) 5,000 5,000 mcg PO DAILY 12/21/24 01/04/25 History mcg disintegrating tablet gabapentin 300 mg capsule 300 mg PO 4XWK 01/04/25 01/04/25 History vitamin E 100 unit capsule 100 mg PO DAILY 01/04/25 01/04/25 History Saccharomyces boulardii 250 mg 250 mg PO DAILY #30 caps 01/05/25 Rx capsule apixaban 5 mg tablet (Eliquis) See Rx Instructions .Route 01/05/25 Rx .COMPLEX #74 tabs doxycycline hyclate 100 mg capsule 100 mg PO BID #8 caps 01/05/25 Rx Hospital Stay Data Consultations 01/04/25 02:40 ED Decision to Admit Stat Diagnostic Imagining Performed 01/03/25 22:37 CT angio chest PE protocol Stat 01/04/25 03:38 US venous doppler LE BI Routine Chest X-Ray 01/03/25 21:46 Exam(s): XR CXR 1 VIEW EXAM: XR Chest, 1 View CLINICAL HISTORY: Reason for exam: Chest pain, nonspecific. TECHNIQUE: Frontal view of the chest. COMPARISON: No relevant prior studies available. FINDINGS: Lungs: Mild to moderate peribronchial thickening of the central lower lobe bronchi with increased interstitial opacities in the lower lobes. No consolidation. Pleural space: Unremarkable. No pneumothorax. Heart: Unremarkable. No cardiomegaly. Mediastinum: Unremarkable. Normal mediastinal contour. Bones/joints: Unremarkable. No acute fracture. IMPRESSION: Bronchitis, which may be of infectious or inflammatory etiologies. No consolidation or pleural effusion. Electronically signed by: Tatianna Sin MD 01/04/25 01:59 AM Chest CTA 01/03/25 22:37 CR Exam(s): CTA CHEST IV Amt: 115 ml optiray 320 EXAM: CT Angiography Chest With Intravenous Contrast CLINICAL HISTORY: Reason for exam: CP, Hx breast ca, 17k wbc. TECHNIQUE: Axial computed tomographic angiography images of the chest with intravenous contrast. CTDI is 14.25 mGy and DLP is 7.12 mGy-cm. Automated exposure control was utilized for the study. A dose lowering technique was utilized adhering to the principles of ALARA. MIP reconstructed images were created and reviewed. COMPARISON: None FINDINGS: Pulmonary arteries: Small pulmonary emboli in the subsegmental pulmonary arteries to the right lower lobe. Aorta: No acute findings. No aortic aneurysm or dissection. Lungs: Emphysematous changes. Mild dependent atelectasis bilaterally. No other focal consolidation. Pleural space: Unremarkable. No significant effusion. No pneumothorax. Heart: Unremarkable. No cardiomegaly. No significant pericardial effusion. No evidence of RV dysfunction. Mediastinum: Small hiatal hernia. Thyroid: Small hypodense nodules in the right thyroid lobe could be further evaluated with ultrasound if clinically indicated. Bones/joints: Mild degenerative changes of the spine. Old right-sided rib fracture deformity. No dislocation. Soft tissues: Small calcifications of the breasts. Lymph nodes: Unremarkable. No enlarged lymph nodes. IMPRESSION: 1. Small pulmonary emboli in the subsegmental pulmonary arteries to the right lower lobe. 2. No aortic aneurysm or dissection. 3. Emphysematous changes. Communications: Call Doctor Pulmonary Embolism Electronically signed by: Jovanny Brandt M.D. 01/04/25 02:25 AM Venous Doppler Study 01/04/25 03:38 EXAM: US venous doppler LE BI CLINICAL HISTORY: PE TECHNIQUE: Ultrasound examination of bilateral lower extremity veins was performed in real time and duplex. One or more of the following were performed- spectral analysis, resistive index, waveform analysis, and pulsed Doppler. COMPARISON: None. FINDINGS: Normal phasic, non-pulsatile and spontaneous flow is noted in bilateral common femoral, superficial femoral, popliteal and posterior tibial and peroneal veins. Visualized veins of both lower extremities demonstrate normal compressibility. No sonographic evidence of acute deep vein thrombosis (DVT) is detected in the visualized veins of both lower extremities. Compression and Augmentation: All evaluated veins compress fully with applied transducer pressure. Augmentation of venous flow is noted with distal compression. Additional Findings: Partially reducible fat containing right femoral hernia. IMPRESSION: 1. No sonographic evidence of acute DVT detected in bilateral common femoral, superficial femoral, popliteal and posterior tibial and peroneal veins, at the time of examination. 2. Partially reducible fat containing right femoral hernia. Disclaimer: DVT could be missed early in the disease when clot burden is minimal. For patients with moderate and high pretest probability of DVT and negative ultrasound, the [place] [employer] clinical guidelines recommend testing with a D-dimer assay or repeat ultrasound in 5-7 days. If symptoms worsen, the Society of radiologists in ultrasound recommends repeating ultrasound even earlier. Electronically signed by Santos Walsh 01-04-2025 07:23 AM Pending Results Patient Have Any Pending Studies at Discharge: No Discharge Instructions Given to Patient (Per Discharging Provider) Remy Powell were admitted and treated for chest pain and a blood clot in your lungs. Your oncologist Dr Mckeon was contacted and he wants you to be on the medication Eliquis. We called your pharmacy and they stated that your insurance will cover it. Based on the chest imaging it appears that you now have COPD changes. continue with the antibiotic for 4 more days with the probiotic. Please keep close follow up with your primary care provider after discharge. Please do not hesitate to come back to the emergency room if your symptoms worsen or return. It was a pleasure taking care of you while you were here. Total Time Total Time Spent Total Time Spent (In Minutes): 45
[2025-01-05] MEDS ORDERED: NICOTINE 14 MG/24 HR PATCH TD SCH (12:45)
[2025-01-05 12:51] VITALS: PULSE 100
== END 2025-01-05 13:25 | disposition home or self-care (01) | DRG 176 ==
LOC: ED 21:32 → INTOOBSV 01-04 03:37 → EDINP 01-04 03:37 → 2N 01-04 07:22